=== PATIENT | male | born 1930 | race Caucasian/White ===

== ENCOUNTER 2017-03-18 13:24 | Inpatient (IN) ==
--- NOTE | 2017-03-18 14:23 | Emergency Department Note ---
SOB HPI - General Chief Complaint: Shortness of Breath/Dyspnea Stated Complaint: SOB, fever, flank pain, dark urine Time Seen by Provider: 03/18/17 13:39 Source: family Mode of arrival: wheelchair Limitations: no limitations - History of Present Illness 87-year-old male presents with family for increased shortness of breath, weakness, fevers on and off for the last 2 days and dark urine. He also has some flank pain that she has been complaining of and burning with urination. He was previously at [facility] and discharged on the sixth floor ischemic cardiomyopathy and unstable angina. His daughter has been getting him up using the walker and he has been very short of breath. He has a history of dilated cardiomyopathy and congestive heart failure. He has had a nonproductive cough. He complains of chest pain on and off but has not told his daughters about this. He has not been eating or drinking very well. 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 He has had a cholecystectomy and bowel removed due to perforation. He has not been vomiting. Temperature is 99.3 and he is satting around 92% on room air. He does use oxygen at night and family states he was on oxygen almost the whole time he was in the hospital. They were upset with [facility] and do not want to go back - Related Data Home Medications Medication Instructions Recorded Confirmed Acetaminophen [Acetaminophen Extra 500 mg PO QHS 03/18/17 03/18/17 Strength] Ascorbic Acid [Vitamin C] 500 mg PO DAILY 03/18/17 03/18/17 Aspirin [Leatha Chewable Aspirin] 81 mg PO DAILY 03/18/17 03/18/17 Carvedilol [Coreg] 25 mg PO BID 03/18/17 03/18/17 Cholecalciferol (Vitamin D3) 2,000 unit PO DAILY 03/18/17 03/18/17 [Vitamin D] Clopidogrel [Plavix] 75 mg PO DAILY 03/18/17 03/18/17 Docusate Sodium [Colace] 100 mg PO BID 03/18/17 03/18/17 Furosemide [Lasix] 40 mg PO DAILY 03/18/17 03/18/17 Ipratropium/Albuterol Sulfate 2 puff INH Q4HP PRN 03/18/17 03/18/17 [Combivent] LORazepam [Ativan] 0.5 mg PO PRN PRN 03/18/17 03/18/17 Levothyroxine Sodium [Levoxyl] 88 mcg PO DAILY 03/18/17 03/18/17 Lisinopril [Zestril] 5 mg PO DAILY 03/18/17 03/18/17 Multivitamin,Ther and Minerals 1 each PO DAILY 03/18/17 03/18/17 [Multivitamins with Minerals Hp] Nortriptyline HCl [Pamelor] 25 mg PO HS 03/18/17 03/18/17 Pantoprazole Sodium [Protonix] 40 mg PO DAILY 03/18/17 03/18/17 Potassium Chloride [Klor-Con 10 meq PO BID 03/18/17 03/18/17 Sprinkle] Sertraline [Zoloft] 25 mg PO DAILY 03/18/17 03/18/17 Simvastatin [Zocor] 10 mg PO HS 03/18/17 03/18/17 Ubidecarenone/Vit E Acetate [Co 3 each PO DAILY 03/18/17 03/18/17 Q-10 100 mg Softgel] Allergies Allergy/AdvReac Type Severity Reaction Status Date / Time cephalexin Allergy Unknown Unknown Verified 11/25/14 12:07 ezetimibe [From Zetia] Allergy Unknown Unknown Verified 11/25/14 12:07 ketorolac [From Toradol] Allergy Unknown Unknown Verified 11/25/14 12:07 meperidine Allergy Unknown Unknown Verified 11/25/14 12:07 morphine Allergy Unknown Unknown Verified 11/25/14 12:07 nitroglycerin Allergy Unknown Unknown Verified 11/25/14 12:07 Oxycodone Allergy Unknown Unknown Verified 11/25/14 12:07 Penicillins Allergy Unknown Unknown Verified 11/25/14 12:07 simvastatin Allergy Unknown Unknown Verified 11/25/14 12:07 erythromycin Allergy Unknown Unknown Uncoded 11/25/14 12:07 sulfa Allergy Unknown Unknown Uncoded 11/25/14 12:07 Review of Systems All systems ED: reviewed and negative except as stated. Past Medical History - Past Medical History Medical history: Reports: atrial fibrillation, CHF, COPD, coronary artery disease, CVA, hyperlipidemia, kidney stones, myocardial infarction, other ( Hydrocephalus, ischemic cardiomyopathy, neuropathy, left foot drop, back pain, subdural hemorrhage, hypothyroidism) Psychiatric history: Reports: depression Surgical history ED: Reports: cholecystectomy, colectomy Family history: Reports: non-contributory - Social History smoking status: Never smoker Physical Exam Limitations: no limitations General appearance: alert, in no apparent distress Head: atraumatic Eye: Present: normal appearance. Absent: conjunctival injection ENT: normal oropharynx, mucous membranes moist Neck: Present: normal inspection, full ROM. Absent: tenderness, lymphadenopathy Chest: Present: normal inspection, symmetric chest wall rise, tenderness ( anteriolateral left chest tenderness) Respiratory: Present: other (decreased in the lower lobes) Cardiovascular: Present: regular rate, normal heart sounds Abdominal: Present: soft, tenderness, normal bowel sounds. Absent: distention, guarding, rebound Abdominal tenderness: Present: RUQ, LUQ, LLQ, epigastrium, diffuse, moderate. Absent: RLQ Extremities: Present: normal inspection, full ROM. Absent: pedal edema Neurological: Present: alert, oriented X3, CN II-XII intact Psychiatric: Present: normal affect, normal mood Skin: Present: warm, dry, intact Course Vital Signs Temperature 99.3 F H 03/18/17 13:26 Respiratory Rate 20 03/18/17 13:26 Blood Pressure 106/63 03/18/17 13:26 Pulse Oximetry (%) 92 03/18/17 13:26 Temperature 100.7 F H 03/18/17 16:42 Pulse Rate 70 03/18/17 20:28 Respiratory Rate 22 03/18/17 20:28 Blood Pressure 96/54 03/18/17 20:00 Pulse Oximetry (%) 94 03/18/17 20:28 Shortness of Breath/Dyspnea - MDM Narrative Medical decision making narrative: BNP doubled since previous labs. White count continued to be high at 20. Lactic was normal CHF on chest x-ray. He also has low blood pressures and fever. He was given some fluids and blood pressure seemed to stay stable with a MAP in the 70s. I discussed with the patient if he wants life saving measures such as chest compressions if his heart stops. He said he does not want compressions and family agree that he does not need to have any interventions surgically - Lab Data Lab results reviewed: Yes I reviewed the patient's lab results. Result diagrams: 03/18/17 14:12 03/18/17 14:12 Lab Results 03/18/17 03/18/17 03/18/17 Range/Units 14:12 14:12 14:12 WBC 20.4 H (4.5-11.0) K/mcL RBC 6.24 H (4.50-5.90) M/mcL Hgb 15.7 (13.5-16.5) g/dL Hct 49.7 (41.0-55.0) % MCV 79.6 L (80.0-100.0) fL MCH 25.1 L (26.0-34.0) pg MCHC 31.5 (31.0-36.0) g/dL RDW 18.0 H (11.5-14.5) % Plt Count 290 (140-440) K/mcL MPV 11.3 H (7.4-10.4) fL Total Counted 100 Seg Neutrophils % 65 (38-78) % Band Neutrophils % Not Reportable Lymphocytes % 9 L (15-49) % Monocytes % (Manual) 21 H (1-12) % Eosinophils % (Manual) 4 (0-7) % Basophils % (Manual) 1 (0-2) % Platelet Estimate Normal (NORMAL) RBC Morphology Abnorm A (NORMAL) Hypochromasia Occ A (NONE SEEN) Anisocytosis 1+ A (NONE SEEN) Microcytosis 1+ A (NONE SEEN) VBG Lactic Acid 1.5 (0.5-2.2) mmol/L Sodium 137 (133-145) mmol/L Potassium 3.9 (3.3-5.1) mmol/L Chloride 100 (96-108) mmol/L Carbon Dioxide 21 L (22-30) mmol/L Anion Gap 16.0 (8-16) BUN 20 (8-23) mg/dl Creatinine 0.9 (0.7-1.2) mg/dl GFR Calculation 76 Glucose 113 H (70-105) mg/dL Calcium 8.8 (8.6-10.4) mg/dl Total Bilirubin 1.1 H (0.0-1.0) mg/dL AST 20 (0-37) U/l ALT 12 (0-40) U/l Alkaline Phosphatase 89 (39-117) U/L Troponin T (0-0.03) ng/ml NT-Pro-B Natriuret Pep (0-450) pg/ml Total Protein 6.2 (5.9-8.4) gm/dL Albumin 3.7 (3.2-5.2) gm/dL Globulin 2.5 (2.2-3.7) gm/dL Albumin/Globulin Ratio 1.5 (1.0-2.3) Procalcitonin (<0.10) ng/mL Urine Color Urine Appearance Urine pH (5.0-9.0) Ur Specific [place] (1.000-1.035) Urine Protein (NEG) mg/dL Urine Glucose (UA) (NEG) mg/dL Urine Ketones (NEG) mg/dL Urine Occult Blood (<0.03) mg/dL Urine Nitrate (NEG) Urine Bilirubin (NEG) mg/dL Urine Urobilinogen (NEG) mg/dL Ur Leukocyte Esterase (NEG) /uL Urine RBC (0-1) /hpf Urine WBC (0-4) /hpf Ur Squamous Epith Cells (0-4) /hpf Urine Bacteria (0) /hpf Hyaline Casts (0-2) /lpf Urine Mucus (0) /hpf Ur Culture Indicated? 03/18/17 03/18/17 03/18/17 Range/Units 14:12 14:12 14:12 WBC (4.5-11.0) K/mcL RBC (4.50-5.90) M/mcL Hgb (13.5-16.5) g/dL Hct (41.0-55.0) % MCV (80.0-100.0) fL MCH (26.0-34.0) pg MCHC (31.0-36.0) g/dL RDW (11.5-14.5) % Plt Count (140-440) K/mcL MPV (7.4-10.4) fL Total Counted Seg Neutrophils % (38-78) % Band Neutrophils % Lymphocytes % (15-49) % Monocytes % (Manual) (1-12) % Eosinophils % (Manual) (0-7) % Basophils % (Manual) (0-2) % Platelet Estimate (NORMAL) RBC Morphology (NORMAL) Hypochromasia (NONE SEEN) Anisocytosis (NONE SEEN) Microcytosis (NONE SEEN) VBG Lactic Acid (0.5-2.2) mmol/L Sodium (133-145) mmol/L Potassium (3.3-5.1) mmol/L Chloride (96-108) mmol/L Carbon Dioxide (22-30) mmol/L Anion Gap (8-16) BUN (8-23) mg/dl Creatinine (0.7-1.2) mg/dl GFR Calculation Glucose (70-105) mg/dL Calcium (8.6-10.4) mg/dl Total Bilirubin (0.0-1.0) mg/dL AST (0-37) U/l ALT (0-40) U/l Alkaline Phosphatase (39-117) U/L Troponin T 0.02 (0-0.03) ng/ml NT-Pro-B Natriuret Pep 6214.0 H (0-450) pg/ml Total Protein (5.9-8.4) gm/dL Albumin (3.2-5.2) gm/dL Globulin (2.2-3.7) gm/dL Albumin/Globulin Ratio (1.0-2.3) Procalcitonin < 0.05 (<0.10) ng/mL Urine Color Urine Appearance Urine pH (5.0-9.0) Ur Specific [place] (1.000-1.035) Urine Protein (NEG) mg/dL Urine Glucose (UA) (NEG) mg/dL Urine Ketones (NEG) mg/dL Urine Occult Blood (<0.03) mg/dL Urine Nitrate (NEG) Urine Bilirubin (NEG) mg/dL Urine Urobilinogen (NEG) mg/dL Ur Leukocyte Esterase (NEG) /uL Urine RBC (0-1) /hpf Urine WBC (0-4) /hpf Ur Squamous Epith Cells (0-4) /hpf Urine Bacteria (0) /hpf Hyaline Casts (0-2) /lpf Urine Mucus (0) /hpf Ur Culture Indicated? 03/18/17 Range/Units 15:52 WBC (4.5-11.0) K/mcL RBC (4.50-5.90) M/mcL Hgb (13.5-16.5) g/dL Hct (41.0-55.0) % MCV (80.0-100.0) fL MCH (26.0-34.0) pg MCHC (31.0-36.0) g/dL RDW (11.5-14.5) % Plt Count (140-440) K/mcL MPV (7.4-10.4) fL Total Counted Seg Neutrophils % (38-78) % Band Neutrophils % Lymphocytes % (15-49) % Monocytes % (Manual) (1-12) % Eosinophils % (Manual) (0-7) % Basophils % (Manual) (0-2) % Platelet Estimate (NORMAL) RBC Morphology (NORMAL) Hypochromasia (NONE SEEN) Anisocytosis (NONE SEEN) Microcytosis (NONE SEEN) VBG Lactic Acid (0.5-2.2) mmol/L Sodium (133-145) mmol/L Potassium (3.3-5.1) mmol/L Chloride (96-108) mmol/L Carbon Dioxide (22-30) mmol/L Anion Gap (8-16) BUN (8-23) mg/dl Creatinine (0.7-1.2) mg/dl GFR Calculation Glucose (70-105) mg/dL Calcium (8.6-10.4) mg/dl Total Bilirubin (0.0-1.0) mg/dL AST (0-37) U/l ALT (0-40) U/l Alkaline Phosphatase (39-117) U/L Troponin T (0-0.03) ng/ml NT-Pro-B Natriuret Pep (0-450) pg/ml Total Protein (5.9-8.4) gm/dL Albumin (3.2-5.2) gm/dL Globulin (2.2-3.7) gm/dL Albumin/Globulin Ratio (1.0-2.3) Procalcitonin (<0.10) ng/mL Urine Color Yellow Urine Appearance Clear Urine pH 5.0 (5.0-9.0) Ur Specific [place] 1.015 (1.000-1.035) Urine Protein Neg (NEG) mg/dL Urine Glucose (UA) Negative (NEG) mg/dL Urine Ketones Neg (NEG) mg/dL Urine Occult Blood 0.03 A (<0.03) mg/dL Urine Nitrate Neg (NEG) Urine Bilirubin Neg (NEG) mg/dL Urine Urobilinogen 4.0 A (NEG) mg/dL Ur Leukocyte Esterase Neg (NEG) /uL Urine RBC < 1 (0-1) /hpf Urine WBC < 1 (0-4) /hpf Ur Squamous Epith Cells 0 (0-4) /hpf Urine Bacteria 0 (0) /hpf Hyaline Casts 1 (0-2) /lpf Urine Mucus Few (0) /hpf Ur Culture Indicated? No - Radiology Data Radiology results reviewed: Yes I reviewed the patient's radiology results. Congestive heart failure with pulmonary edema. Superimposed pneumonia cannot be excluded. Disposition Pt seen by ELECT[employer] OPERATOR/PA only: No Clinical Impression: Congestive heart failure, Hospital acquired PNA Disposition: Xfer As Inpt ([facility]) Condition: Fair Referrals: Kiana Multani MD [Primary Care Provider] -
[2017-03-18] MEDS: 0.9 % SODIUM CHLORIDE 1,000 ML IV SCH (14:30)
[2017-03-18 15:00] LABS: Mean Cell Volume 79.6 fL (80.0-100.0); Mean Corpuscular HGB Conc 31.5 g/dL (31.0-36.0); Mean Corpuscular Hemoglobin 25.1 pg (26.0-34.0); Platelet Count 290 K/mcL (140-440); RBC 6.24 M/mcL (4.50-5.90)
[2017-03-18 15:14] LABS: ALT/SGPT 12 U/l (0-40); Albumin 3.7 gm/dL (3.2-5.2); Albumin/Globulin Ratio 1.5 (1.0-2.3); Alkaline Phosphatase 89 U/L (39-117); Blood Urea Nitrogen 20 mg/dl (8-23)
[2017-03-18 15:21] LABS: Anisocytosis 1+ (NONE SEEN); Basophils % (Manual) 1 % (0-2); Eosinophils % (Manual) 4 % (0-7); Hypochromasia OCC (NONE SEEN); Lymphocytes % 9 % (15-49); Monocytes % (Manual) 21 % (1-12); Platelet Estimate NORMAL (NORMAL); RBC Morphology ABNORM (NORMAL); Segmented Neutrophils % 65 % (38-78)
[2017-03-18] MEDS ORDERED: ACETAMINOPHEN 325 MG TABLET PO ONE (15:44)
[2017-03-18] MEDS ORDERED: LEVOFLOXACIN 500 MG/100 ML BAG IV ONE (15:47)
--- NOTE | 2017-03-18 16:45 | XRay Report ---
HISTORY: Reason for Exam:SOB heart failure FINDINGS: Heart is mildly enlarged. There are generalized alveolar opacities throughout both lungs. This is most apparent in a perihilar distribution. No consolidating infiltrate is present and there is no pleural effusion. Dual-chamber pacemaker is well-positioned. There is a shunt catheter extending across right chest from the neck to the abdomen. Comparison with the prior exam from 06/28/15 shows the previously seen bibasilar infiltrates are no longer present. IMPRESSION: Congestive heart failure with pulmonary edema. Superimposed pneumonia cannot be excluded. Interpreted and Authenticated by: Tayo Murry 03/18/17
[2017-03-18 16:52] LABS: Appearance,Urine CLEAR; Bacteria,Urine 0 /hpf (0); Bilirubin,Urine NEG (NEG); Color,Urine YELLOW; Glucose,Urine (UA) NEGATIVE (NEG); Leukocyte Esterase,Urine NEG /uL (NEG); Mucus,Urine FEW /hpf (0); Nitrate,Urine NEG (NEG); Protein,Urine NEG (NEG); Specific Gravity,Urine 1.015 (1.000-1.035); Urine Blood 0.03 mg/dL (<0.03); Urine Hyaline Cast 1 /lpf (0-2); Urine RBC < 1 /hpf (0-1); Urine Squamous Epithelial Cell 0 /hpf (0-4); Urine WBC < 1 /hpf (0-4)
[2017-03-18] MEDS ORDERED: ONDANSETRON 4 MG/2 ML VIAL IV ONE (16:59)
--- NOTE | 2017-03-18 17:04 | Emergency Department Note ---
ED Note Addendum Note Addendum: patient examined leisa Jacobs and lab and xray reviewed. pt want to be DNR.. has a fever.. suspect pneumonia, has chf. Dr Cisneros consulted and agree with admission. started on levaquin allergic to cephasporins
--- NOTE | 2017-03-18 17:52 | Internal Med History&Physical ---
Medical - H&P: HPI Patient information: Note initiated : 03/18/17 at 5:48 pm Service Date, if different from initiated Date: [] Patient: Matteo Devries 87 y/o M admitted on for SOB, fever, flank pain, dark urine. Chief Complaint: [] History of present illness: Mr. Devries is a 87 year old man who was admitted to [facility] earlier this week, and discharged on Monday. His daughter reports that he had positive troponins and congestive heart failure. He was diuresed. Since discharge she has continued to decline at home. He does live alone, but she says he was having difficulty getting out of bed, and having ongoing cough and chills. He has had worsening shortness of breath over the last couple of days. The patient reports he has more orthopnea than dyspnea with exertion. ER evaluation today showed markedly elevated white blood cell count, and chest x- ray consistent with both CHF and pneumonia. He also had a fever with a temperature of 100.4. Otherwise, he also says his vision has been a little blurry, he has an earache that comes and goes, he has had a mild sore throat. Has had some intermittent chest pain, which is mainly left-sided and sharp, but inconsistent. He denies having that pain today, but the ER note said that he had some discomfort on arrival that went away when they put on oxygen. He denies headaches or dizziness, palpitations, abdominal pain, nausea or vomiting or diarrhea or constipation. He does have some chronic urinary hesitancy issues. He was advised to transfer to another hospital that had cardiology available, but the patient and his daughter know that the real time analyst at [facility] that he is no longer a candidate for any procedures, and can only be medically managed. He and his family are quite adamant that he wants to be a DNR, and does not want to be transferred to a center that has more specialty care available. Patient reports he had a flu shot this season, and a Pneumovax last year. Medical history: Admit to [facility] March 12, 2017, with unstable angina. atrial fibrillation, paroxysmal Sick sinus syndrome, status post pacemaker placement CHF, combined systolic and diastolic. COPD, on chronic oxygen nightly coronary artery disease, status post past CVA, hyperlipidemia, kidney stones, myocardial infarction, Hydrocephalus, post shunt procedure. schemic cardiomyopathy, neuropathy, left foot drop, back pain, subdural hemorrhage, hypothyroidism) depression Peripheral vascular disease Diverticulosis GERD Hypothyroidism History of prostate cancer status post radical prostatectomy. Hypertension and carotid stenosis, status post left CEA Cholecystectomy and inguinal hernia repair Surgical history ED: Reports: cholecystectomy, colectomy, CABG Family history: Grandfather had melanoma. Sister had colon cancer. Another sister had coronary disease in her 40s and a brother had coronary disease in his 60s. Father with heart disease. Medical - H&P: Meds Home Medications Medication Instructions Recorded Confirmed Type Acetaminophen [Acetaminophen Extra 500 mg PO QHS 03/18/17 03/18/17 History Strength] Ascorbic Acid [Vitamin C] 500 mg PO DAILY 03/18/17 03/18/17 History Aspirin [Leatha Chewable Aspirin] 81 mg PO DAILY 03/18/17 03/18/17 History Carvedilol [Coreg] 25 mg PO BID 03/18/17 03/18/17 History Cholecalciferol (Vitamin D3) 2,000 unit PO DAILY 03/18/17 03/18/17 History [Vitamin D] Clopidogrel [Plavix] 75 mg PO DAILY 03/18/17 03/18/17 History Docusate Sodium [Colace] 100 mg PO BID 03/18/17 03/18/17 History Furosemide [Lasix] 40 mg PO DAILY 03/18/17 03/18/17 History Ipratropium/Albuterol Sulfate 2 puff INH Q4HP PRN 03/18/17 03/18/17 History [Combivent] LORazepam [Ativan] 0.5 mg PO PRN PRN 03/18/17 03/18/17 History Levothyroxine Sodium [Levoxyl] 88 mcg PO DAILY 03/18/17 03/18/17 History Lisinopril [Zestril] 5 mg PO DAILY 03/18/17 03/18/17 History Multivitamin,Ther and Minerals 1 each PO DAILY 03/18/17 03/18/17 History [Multivitamins with Minerals Hp] Nortriptyline HCl [Pamelor] 25 mg PO HS 03/18/17 03/18/17 History Pantoprazole Sodium [Protonix] 40 mg PO DAILY 03/18/17 03/18/17 History Potassium Chloride [Klor-Con 10 meq PO BID 03/18/17 03/18/17 History Sprinkle] Sertraline [Zoloft] 25 mg PO DAILY 03/18/17 03/18/17 History Simvastatin [Zocor] 10 mg PO HS 03/18/17 03/18/17 History Ubidecarenone/Vit E Acetate [Co 3 each PO DAILY 03/18/17 03/18/17 History Q-10 100 mg Softgel] Allergies Allergy/AdvReac Type Severity Reaction Status Date / Time cephalexin Allergy Unknown Unknown Verified 11/25/14 12:07 ezetimibe [From Zetia] Allergy Unknown Unknown Verified 11/25/14 12:07 ketorolac [From Toradol] Allergy Unknown Unknown Verified 11/25/14 12:07 meperidine Allergy Unknown Unknown Verified 11/25/14 12:07 morphine Allergy Unknown Unknown Verified 11/25/14 12:07 nitroglycerin Allergy Unknown Unknown Verified 11/25/14 12:07 Oxycodone Allergy Unknown Unknown Verified 11/25/14 12:07 Penicillins Allergy Unknown Unknown Verified 11/25/14 12:07 simvastatin Allergy Unknown Unknown Verified 11/25/14 12:07 erythromycin Allergy Unknown Unknown Uncoded 11/25/14 12:07 sulfa Allergy Unknown Unknown Uncoded 11/25/14 12:07 Medical - H&P: Exam - Constitutional Vitals: Temp Pulse Resp BP Pulse Ox 100.7 F H 70 31 H 95/61 93 03/18/17 16:42 03/18/17 16:38 03/18/17 16:38 03/18/17 16:30 03/18/17 16:38 T-max 100.7. Heart rate 69-73. Respiratory rate regions from 21-31. Blood pressure ranges from 95/65 to 106/63. O2 saturation was 92% on room air and 96 % on 2 L next On exam, he is an elderly white man who is not currently in any distress. He is nearly flat without obvious respiratory distress. Head: Normocephalic, atraumatic. Eyes: PERRLA, EOMI, anicteric. His: TMs and canals are clear. Pharynx: Is clear. Mucosa appears dry. Teeth are in good repair. Neck: Shows jugular venous pressure of about 5 cm, no bili, bruits, lymphadenopathy. Cardiac exam: Shows a slightly irregular rhythm, with normal S1 and S2. There is a 2/6 systolic murmur noted near the left lower sternal border. No rubs or gallops are noted. Lungs: He has diffuse very soft crackles heard throughout most of both lung carvalho. No significant wheezing or rhonchi are noted. Abdomen is soft and with normal bowel sounds. He notes his lower abdomen is a little tender to palpation. There is no guarding or rebound. No masses are noted. Extremities: Show no cyanosis, clubbing, edema. Toes are intact in his right foot. Pulses are decreased in the left foot. Slater neurologic exam: The patient appears alert and oriented, calm and cooperative. Exam is grossly nonfocal. Medical - H&P: Reslt - Labs CBC & Chem 7: 03/18/17 14:12 03/18/17 14:12 Labs: Short CBC 03/18/17 Range/Units 14:12 WBC 20.4 H (4.5-11.0) K/mcL Hgb 15.7 (13.5-16.5) g/dL Hct 49.7 (41.0-55.0) % Plt Count 290 (140-440) K/mcL BMP 03/18/17 14:12 Sodium 137 Potassium 3.9 Chloride 100 Carbon Dioxide 21 L BUN 20 Creatinine 0.9 Glucose 113 H Calcium 8.8 Cardiac Enzymes 03/18/17 Range/Units 14:12 Troponin T 0.02 (0-0.03) ng/ml Liver Function 03/18/17 Range/Units 14:12 Total Bilirubin 1.1 H (0.0-1.0) mg/dL AST 20 (0-37) U/l ALT 12 (0-40) U/l Alkaline Phosphatase 89 (39-117) U/L Albumin 3.7 (3.2-5.2) gm/dL Urine 03/18/17 Range/Units 15:52 Urine Color Yellow Urine Appearance Clear Urine pH 5.0 (5.0-9.0) Ur Specific [place] 1.015 (1.000-1.035) Urine Protein Neg (NEG) mg/dL Urine Glucose (UA) Negative (NEG) mg/dL March 18: CBC: White blood cell count 20,000, hemoglobin 15, hematocrit 49, platelets 290, 000, 65% neutrophils, 21% monocytes Lactic acid is normal at 1.5 Pro-calcitonin is normal at less than 0.05 Chemistry panel: Sodium 137, potassium 3.9, chloride 100, CO2 21, anion gap 16, BUN 20, creatinine 0.9, glucose 113 Total bilirubin 1.1, other LFTs normal. Troponin T is normal at 0.02 ProBNP is elevated at 6200 Urinalysis: Shows 0.03 occult blood, 4.0 urobilinogen, otherwise normal. Chest x-ray: FINDINGS: Heart is mildly enlarged. There are generalized alveolar opacities throughout both lungs. This is most apparent in a perihilar distribution. No consolidating infiltrate is present and there is no pleural effusion. Dual-chamber pacemaker is well-positioned. There is a shunt catheter extending across right chest from the neck to the abdomen. Comparison with the prior exam from 06/28/15 shows the previously seen bibasilar infiltrates are no longer present. IMPRESSION: Congestive heart failure with pulmonary edema. Superimposed pneumonia cannot be excluded. EKG shows left bundle branch block, probably paced. There may be underlying atrial fibrillation. Records from [facility]: March 12: Chest x-ray: Cardiomegaly. Sternotomy wires. Congestive heart failure with possible early infiltrate in the right lung base. Cardiogram: Showed severe left ventricular dilation severely reduced ejection fraction of 25%. Diffuse hypokinesis and akinesis due to previous large inferior lateral NM, and possibly anterior. Biatrial enlargement. Mild aortic regurgitation. Mild aortic stenosis. Pulmonary hypertension. Nuclear scan: Pharmacologic stress test: She had chest pain with injection. Dilated left ventricle with apical lateral perfusion abnormality no evidence of curt-infarction ischemia. Chest consistent with ischemic cardiomyopathy. Medical - H&P: A/P (1) CHF exacerbation Current visit: Yes Status: Acute (2) Ischemic cardiomyopathy Current visit: Yes Status: Acute (3) History of atrial fibrillation Current visit: Yes Status: Chronic (4) History of NM (myocardial infarction) Current visit: Yes Status: Chronic (5) Pneumonia Current visit: Yes Status: Acute (6) Hydrocephalus with operating shunt Current visit: Yes Status: Chronic (7) COPD (chronic obstructive pulmonary disease) Current visit: Yes Status: Chronic (8) Hypothyroidism Current visit: Yes Status: Chronic (9) Depression Current visit: Yes Status: Chronic - Narrative A/P Narrative: #1. Infectious disease. Patient presents with shortness of breath, marked leukocytosis, fever, and likely has pneumonia, although this is not definite on his chest x-ray. -Admit to ICU. -Check ABG. Use O2 to maintain saturations. -Patient has numerous reported antibiotic allergies. We have therefore started Levaquin and vancomycin. -Bronchodilators, incentive spirometry, pulmonary toilet. -Patient is DNR/DNI, but we may use BiPAP if needed. 2. Cardiac. Patient with complicated cardiac history with ischemic cardiomyopathy, NM, CHF, recent unstable angina. He is a very high risk for cardiac complications during his stay, and currently appears to have CHF associated with hypotension. It was explained to his family that we do not have a cardiology service here at the hospital, and that if he wants aggressive care he would need to be transferred to a different facility. The patient and the family reportedly do not want aggressive care, and only want him to get what can be managed here. His daughter indicates that he has been told by the real time analyst at [facility] that he is no longer a candidate for any interventional procedures, and needs to be medically managed. -Admit to ICU. -Dobutamine drip, to see if we can achieve diuresis. We can only use diuretics cautiously, due to his hypotension. He might do better on a Lasix drip. -He was given IV fluids in the emergency room, regarding hypotension in the setting of fever. -Sent to [facility] for recent cardiac records. -Continue aspirin, Coreg, Plavix, lisinopril, Lasix, Zocor, as tolerated. -Patient has reported allergies to morphine and Demerol and nitroglycerin and oxycodone. This will limit our ability to treat him if he has angina. Reported history of atrial fibrillation. He does not appear currently to be in A. fib, but does have a paced rhythm. 3. History of hydrocephalus, with a shunt in place. 4. Pulmonary. history of COPD. -Continue nighttime O2 and bronchodilators. 5. Hypothyroidism. Plan continue levothyroxine. 6. GI. Continue Protonix 7. Psychiatric. Reported history of depression. Continue Zoloft and as needed Ativan #8. CODE STATUS: DNR/DNI. 9. DVT prophylaxis: Continue Plavix and aspirin. Add SCDs. This visit has taken approximately 65 minutes, to review the case with the ER MD, review the patient's records from [facility], review current test results , interview and examine the patient, review plan of care with the patient and the family, and write orders.
[2017-03-18] MEDS ORDERED: PROMETHAZINE 25 MG/ML VIAL IV ONE (18:16)
[2017-03-18] MEDS ORDERED: VANCOMYCIN PER PHARMACY IV ONE (21:31)
[2017-03-18] MEDS ORDERED: MAGNESIUM HYDROXIDE 30 ML ORAL.SUSP PO PRN (21:31)
[2017-03-18] MEDS ORDERED: ONDANSETRON 4 MG/2 ML VIAL IV PRN (21:31)
[2017-03-18] MEDS ORDERED: ALBUTEROL SULFATE 2.5 MG/3 ML NEBULIZER NEB PRN (21:31)
[2017-03-18 22:40] LABS: Basophils # (Auto) 0.1 K/mcL (0.0-0.3); Basophils % (Auto) 0.3 % (0.0-2.0); Eosinophils # (Auto) 1.1 K/mcL (0.0-0.7); Eosinophils % (Auto) 6.2 % (0.0-7.0); Lymphocytes # (Auto) 1.1 K/mcL (1.5-4.8); Mean Corpuscular HGB Conc 32.6 g/dL (31.0-36.0); Mean Corpuscular Hemoglobin 25.4 pg (26.0-34.0); Monocytes # (Auto) 5.1 K/mcL (0.1-0.9); Monocytes % (Auto) 28.5 % (1.0-12.0); Platelet Count 289 K/mcL (140-440); Red Cell Distribution Width 16.8 % (11.5-14.5)
[2017-03-18] MEDS: IPRATROPIUM/ALBUTEROL 3 ML AMPUL.NEB NEB SCH ×2 (23:16→23:17)
[2017-03-18] MEDS: DOCUSATE SODIUM 100 MG CAPSULE PO SCH (23:23)
[2017-03-18] MEDS ORDERED: VANCOMYCIN 500 MG VIAL ONE (23:28)
[2017-03-18] MEDS: VANCOMYCIN 1,000 MG in 0.9 % SODIUM CHLORIDE 250 ML IV SCH ×2 (23:35→23:37)
[2017-03-18] MEDS: 0.9 % SODIUM CHLORIDE 10 ML SYRINGE IV SCH (23:36)
[2017-03-19] MEDS: ACETAMINOPHEN 325 MG TABLET PO PRN (02:16)
[2017-03-19] MEDS: 0.9 % SODIUM CHLORIDE 10 ML SYRINGE IV SCH ×3 (05:43→22:17)
[2017-03-19 06:11] LABS: Basophils # (Auto) 0.1 K/mcL (0.0-0.3); Basophils % (Auto) 0.2 % (0.0-2.0); Eosinophils # (Auto) 1.3 K/mcL (0.0-0.7); Eosinophils % (Auto) 5.7 % (0.0-7.0); Lymphocytes # (Auto) 0.9 K/mcL (1.5-4.8); Lymphocytes % (Auto) 3.8 % (15.5-49.0); Mean Corpuscular HGB Conc 32.1 g/dL (31.0-36.0); Mean Corpuscular Hemoglobin 25.4 pg (26.0-34.0); Monocytes # (Auto) 7.1 K/mcL (0.1-0.9); Monocytes % (Auto) 31.3 % (1.0-12.0); Platelet Count 283 K/mcL (140-440); RBC 5.88 M/mcL (4.50-5.90); Red Cell Distribution Width 17.9 % (11.5-14.5)
[2017-03-19 06:17] LABS: ALT/SGPT 11 U/l (0-40); Albumin 3.3 gm/dL (3.2-5.2); Albumin/Globulin Ratio 1.3 (1.0-2.3); Alkaline Phosphatase 91 U/L (39-117); Bilirubin,Direct 0.4 mg/dL (0.0-0.3); Blood Urea Nitrogen 18 mg/dl (8-23); Gamma Glutamyl Transpeptidase 42 U/L (8-61); Magnesium 1.8 mg/dL (1.6-2.5); Uric Acid 7.4 mg/dL (2.5-8.0)
[2017-03-19] MEDS ORDERED: VANCOMYCIN PER PHARMACY IV SCH (07:30)
[2017-03-19] MEDS: LEVOFLOXACIN 500 MG/100 ML BAG IV SCH (09:00)
[2017-03-19] MEDS: DOCUSATE SODIUM 100 MG CAPSULE PO SCH ×2 (09:01→21:53)
[2017-03-19] MEDS: IPRATROPIUM/ALBUTEROL 3 ML AMPUL.NEB NEB SCH ×3 (09:25→19:07)
[2017-03-19] MEDS: VANCOMYCIN 1,000 MG in 0.9 % SODIUM CHLORIDE 250 ML IV SCH (11:49)
--- NOTE | 2017-03-19 13:36 | XRay Report ---
HISTORY: Reason for Exam:f/u chf/pna, leukocytosis/fever FINDINGS: There are generalized alveolar opacities throughout both lungs. The lungs are normal and there is no lobar consolidation, mass or pleural effusion. The heart is mild to moderately enlarged. There is a dual-chamber pacemaker. There has been no significant change since 03/18/17. IMPRESSION: Stable cardiomegaly and widespread infiltrates in both lungs. The pattern is highly suggestive of congestive heart failure with pulmonary edema. Superimposed pneumonia or ARDS are also in the differential. Interpreted and Authenticated by: Tayo Murry 03/19/17
--- NOTE | 2017-03-19 13:39 | Internal Med Progress Note ---
Medical - PN: Subj Patient information: Note initiated : 03/19/17 at 1:39 pm Service Date, if different from initiated Date: [] Patient: Matteo Devries 87 y/o M admitted on 03/18/17 for SOB, fever, flank pain, dark urine. Chief Complaint: [] Interval history: March 18, 2017: History of present illness: Mr. Devries is a 87 year old man who was admitted to [facility] earlier this week, and discharged on Monday. His daughter reports that he had positive troponins and congestive heart failure. He was diuresed. Since discharge she has continued to decline at home. He does live alone, but she says he was having difficulty getting out of bed, and having ongoing cough and chills. He has had worsening shortness of breath over the last couple of days. The patient reports he has more orthopnea than dyspnea with exertion. ER evaluation today showed markedly elevated white blood cell count, and chest x- ray consistent with both CHF and pneumonia. He also had a fever with a temperature of 100.4. Otherwise, he also says his vision has been a little blurry, he has an earache that comes and goes, he has had a mild sore throat. Has had some intermittent chest pain, which is mainly left-sided and sharp, but inconsistent. He denies having that pain today, but the ER note said that he had some discomfort on arrival that went away when they put on oxygen. He denies headaches or dizziness, palpitations, abdominal pain, nausea or vomiting or diarrhea or constipation. He does have some chronic urinary hesitancy issues. He was advised to transfer to another hospital that had cardiology available, but the patient and his daughter know that the digital sales assistant at [facility] that he is no longer a candidate for any procedures, and can only be medically managed. He and his family are quite adamant that he wants to be a DNR, and does not want to be transferred to a center that has more specialty care available. Patient reports he had a flu shot this season, and a Pneumovax last year. March 19: Today, the patient says he feels a little better. He continues to be somewhat vague in his history. He denies fever chills, chest pain or significant shortness of breath, GI or symptoms. T-max was 99.9, but he has been afebrile since then. White blood cell count actually bumped up to 22,000 today. Chest x-ray continues to show widespread bilateral infiltrates. Patient continues to maintain O2 saturations on low flow oxygen. - Constitutional Vitals: Vital Signs Temp Pulse Resp BP Pulse Ox 99.4 F H 69 23 H 126/82 92 03/19/17 12:00 03/19/17 12:01 03/19/17 13:01 03/19/17 13:00 03/19/17 12:01 Period Temp Pulse Resp BP Sys/Lemon Pulse Ox Last 24 Hr 97.7 F-100.7 F 67-75 15-34 92-135/54-82 86-97 Intake and Output 03/18/17 03/19/17 03/19/17 21:59 05:59 13:59 Intake Total 1100 / 1100 600 / 600 100 / 100 Output Total 520 / 520 250 / 250 Balance 1100 / 1100 80 / 80 -150 / -150 Weight 157 lb Intake & Output: Intake & Output 03/18/17 03/19/17 03/19/17 21:59 05:59 13:59 Intake Total 1100 / 1100 600 / 600 100 / 100 Output Total 520 / 520 250 / 250 Balance 1100 / 1100 80 / 80 -150 / -150 Weight 157 lb Intake: IV 1100 / 1100 100 / 100 Sodium Chloride 0.9% 1,000 ml @ 1000 / 1000 250 mls/hr IV .Q4H [facility] Rx#: [id number] Oral 100 / 100 IV - Manual Only 500 / 500 Output: Void Amount 520 / 520 250 / 250 The patient is lying nearly flat, without significant distress. Neck shows no obvious JVD. Cardiac exam shows regular rate and rhythm. Lung exam shows crackles about residential up bilaterally. No wheezing is noted. Abdomen is soft and nontender. Extremities show no significant edema. Neurologic exam is grossly nonfocal. Medical - PN: Obj Da - Labs CBC & Chem 7: 03/19/17 03:46 03/19/17 03:46 Labs: Abnormal Lab Results 03/19/17 03/19/17 03/18/17 03:46 03:46 21:42 WBC 22.6 H 17.9 H RBC MCV 79.0 L 78.0 L MCH 25.4 L 25.4 L RDW 17.9 H 16.8 H MPV 11.5 H 11.2 H Lymph % (Auto) 3.8 L 6.0 L Fannin % (Auto) 31.3 H 28.5 H Gran # 13.3 H 10.5 H Lymph # (Auto) 0.9 L 1.1 L Fannin # (Auto) 7.1 H 5.1 H Eos # (Auto) 1.3 H 1.1 H Lymphocytes % Monocytes % (Manual) RBC Morphology Hypochromasia Anisocytosis Microcytosis Carbon Dioxide 21 L Glucose Calcium 8.5 L Total Bilirubin 1.3 H Direct Bilirubin 0.4 H Lactate Dehydrogenase 297 H NT-Pro-B Natriuret Pep Total Protein 5.8 L Urine Occult Blood Urine Urobilinogen 03/18/17 03/18/17 03/18/17 15:52 14:12 14:12 WBC RBC MCV MCH RDW MPV Lymph % (Auto) Fannin % (Auto) Gran # Lymph # (Auto) Fannin # (Auto) Eos # (Auto) Lymphocytes % Monocytes % (Manual) RBC Morphology Hypochromasia Anisocytosis Microcytosis Carbon Dioxide 21 L Glucose 113 H Calcium Total Bilirubin 1.1 H Direct Bilirubin Lactate Dehydrogenase NT-Pro-B Natriuret Pep 6214.0 H Total Protein Urine Occult Blood 0.03 A Urine Urobilinogen 4.0 A 03/18/17 14:12 WBC 20.4 H RBC 6.24 H MCV 79.6 L MCH 25.1 L RDW 18.0 H MPV 11.3 H Lymph % (Auto) Fannin % (Auto) Gran # Lymph # (Auto) Fannin # (Auto) Eos # (Auto) Lymphocytes % 9 L Monocytes % (Manual) 21 H RBC Morphology Abnorm A Hypochromasia Occ A Anisocytosis 1+ A Microcytosis 1+ A Carbon Dioxide Glucose Calcium Total Bilirubin Direct Bilirubin Lactate Dehydrogenase NT-Pro-B Natriuret Pep Total Protein Urine Occult Blood Urine Urobilinogen March 19: Nasal MRSA screen is negative. Blood cultures are negative so far. Sputum Gram stain: Shows only a few polys and squamous epithelial cells. Chest x-ray: Shows stable cardiomegaly and widespread infiltrates in all lung carvalho, suggestive of CHF with possible superimposed pneumonia. March 18: CBC: White blood cell count 20,000, hemoglobin 15, hematocrit 49, platelets 290, 000, 65% neutrophils, 21% monocytes ABG: On room air: Shows pH 7.43, CO2 35, O2 77, bicarb 23, O2 saturation 95%. Lactic acid is normal at 1.5 Pro-calcitonin is normal at less than 0.05 Chemistry panel: Sodium 137, potassium 3.9, chloride 100, CO2 21, anion gap 16, BUN 20, creatinine 0.9, glucose 113 Total bilirubin 1.1, other LFTs normal. Troponin T is normal at 0.02 ProBNP is elevated at 6200 Urinalysis: Shows 0.03 occult blood, 4.0 urobilinogen, otherwise normal. Chest x-ray: FINDINGS: Heart is mildly enlarged. There are generalized alveolar opacities throughout both lungs. This is most apparent in a perihilar distribution. No consolidating infiltrate is present and there is no pleural effusion. Dual-chamber pacemaker is well-positioned. There is a shunt catheter extending across right chest from the neck to the abdomen. Comparison with the prior exam from 06/28/15 shows the previously seen bibasilar infiltrates are no longer present. IMPRESSION: Congestive heart failure with pulmonary edema. Superimposed pneumonia cannot be excluded. EKG shows left bundle branch block, probably paced. There may be underlying atrial fibrillation. Records from [facility]: March 12: Chest x-ray: Cardiomegaly. Sternotomy wires. Congestive heart failure with possible early infiltrate in the right lung base. Cardiogram: Showed severe left ventricular dilation severely reduced ejection fraction of 25%. Diffuse hypokinesis and akinesis due to previous large inferior lateral ME, and possibly anterior. Biatrial enlargement. Mild aortic regurgitation. Mild aortic stenosis. Pulmonary hypertension. Nuclear scan: Pharmacologic stress test: She had chest pain with injection. Dilated left ventricle with apical lateral perfusion abnormality no evidence of curt-infarction ischemia. Chest consistent with ischemic cardiomyopathy. Meds: Medications Acetaminophen (Tylenol) 650 mg PO Q4-6HP PRN PRN Reason: PAIN/FEVER > 101 Last Admin: 03/19/17 02:16 Dose: 650 mg Albuterol Sulfate (Ventolin) 2.5 mg NEB Q4HRT PRN PRN Reason: Shortness Of Breath Or Wheezing Albuterol/Ipratropium (Duoneb) 3 ml NEB Q6HRT [facility] Last Admin: 03/19/17 09:25 Dose: 3 ml Docusate Sodium (Colace) 100 mg PO BID [facility] Last Admin: 03/19/17 09:01 Dose: 100 mg Dobutamine HCl/Dextrose (Dobutrex) 250 mg in 250 mls @ 2.177 mls/hr IV .Q24H GLORIA; 0.5 MCG/KG/MIN PRN Reason: Protocol Levofloxacin (Levaquin) 500 mg in 100 mls @ 100 mls/hr IV Q24H [facility] Last Infusion: 03/19/17 11:51 Dose: Infused Vancomycin HCl 1,000 mg/ (Sodium Chloride) 250 mls @ 250 mls/hr IV Q24H [facility] Last Admin: 03/19/17 11:49 Dose: 250 mls/hr Lorazepam (Ativan) 0.5 mg IV Q2HP PRN PRN Reason: ANXIETY/SEDATION Magnesium Hydroxide (Milk Of Magnesia) 30 ml PO DAILYP PRN PRN Reason: Constipation Ondansetron HCl (Zofran) 4 mg IV Q4-6HP PRN PRN Reason: Nausea And Vomiting Sodium Chloride (Saline Flush) 10 ml IV Q8 [facility] Last Admin: 03/19/17 05:43 Dose: 10 ml Vancomycin HCl (Vancomycin Per Pharmacy) 1 order IV [facility] [place] Medical - PN: A/P - Time Spent With Patient Total time spent is greater than 50% in coordination of care (as documented) at patient's floor/unit and/or counseling patient: (1) CHF exacerbation Status: Acute Current Visit: Yes (2) Ischemic cardiomyopathy Status: Acute Current Visit: Yes (3) History of atrial fibrillation Status: Chronic Current Visit: Yes (4) History of ME (myocardial infarction) Status: Chronic Current Visit: Yes (5) Pneumonia Status: Acute Current Visit: Yes (6) Hydrocephalus with operating shunt Status: Chronic Current Visit: Yes (7) COPD (chronic obstructive pulmonary disease) Status: Chronic Current Visit: Yes (8) Hypothyroidism Status: Chronic Current Visit: Yes (9) Depression Status: Chronic Current Visit: Yes - Narrative A/P Narrative: #1. Infectious disease. Patient presents with shortness of breath, marked leukocytosis, fever, and likely has pneumonia, although this is not definite on his chest x-ray. We have started Levaquin and vancomycin. -Bronchodilators, incentive spirometry, pulmonary toilet. -Patient is DNR/DNI, but we may use BiPAP if needed. 2. Cardiac. Patient with complicated cardiac history with ischemic cardiomyopathy, ME, CHF, recent unstable angina. He is a very high risk for cardiac complications during his stay, and currently appears to have CHF associated with hypotension. It was explained to his family that we do not have a cardiology service here at the hospital, and that if he wants aggressive care he would need to be transferred to a different facility. The patient and the family reportedly do not want aggressive care, and only want him to get what can be managed here. His daughter indicates that he has been told by the digital sales assistant at [facility] that he is no longer a candidate for any interventional procedures, and needs to be medically managed. -Chest x-ray continues to have the appearance of at least underlying CHF. The patient did not receive dobutamine overnight, because his blood pressures remained relatively high. At this time I will try him on a Lasix drip, to see if he can tolerate gentle diuresis. We can only use diuretics cautiously, due to his hypotension. -He was given IV fluids in the emergency room, regarding hypotension in the setting of fever. -Sent to [facility] for recent cardiac records. -Continue aspirin, Coreg, Plavix, lisinopril, Lasix, Zocor, as tolerated. -Patient has reported allergies to morphine and Demerol and nitroglycerin and oxycodone. This will limit our ability to treat him if he has angina. Reported history of atrial fibrillation. He does not appear currently to be in A. fib, but does have a paced rhythm. 3. History of hydrocephalus, with a shunt in place. 4. Pulmonary. history of COPD. -Continue nighttime O2 and bronchodilators. -His chest x-ray continues to look worse than he does clinically. Continue oxygen, nebulizer treatments. 5. Hypothyroidism. Plan continue levothyroxine. 6. GI. Continue Protonix 7. Psychiatric. Reported history of depression. Continue Zoloft and as needed Ativan #8. CODE STATUS: DNR/DNI. 9. DVT prophylaxis: Continue Plavix and aspirin. Add SCDs. Medical - PN: Qual - VTE Deep Vein Thrombosis/Pulmonary Embolism Present on Admission: Yes
[2017-03-19] MEDS: 0.9 % SODIUM CHLORIDE 1,000 ML IV SCH (20:15)
[2017-03-19] MEDS: LORazepam 2 MG/ML VIAL IV PRN (21:53)
[2017-03-20] MEDS ORDERED: FUROSEMIDE 100 MG/10 ML VIAL IV ONE (01:08)
[2017-03-20] MEDS: FUROSEMIDE 250 MG in 0.9 % SODIUM CHLORIDE 225 ML IV SCH (01:19)
[2017-03-20] MEDS: IPRATROPIUM/ALBUTEROL 3 ML AMPUL.NEB NEB SCH ×4 (01:35→19:07)
[2017-03-20] MEDS: 0.9 % SODIUM CHLORIDE 10 ML SYRINGE IV SCH ×3 (05:40→22:26)
[2017-03-20 07:44] LABS: ALT/SGPT 17 U/l (0-40); Albumin 3.4 gm/dL (3.2-5.2); Albumin/Globulin Ratio 1.2 (1.0-2.3); Alkaline Phosphatase 98 U/L (39-117); Bilirubin,Direct 0.5 mg/dL (0.0-0.3); Blood Urea Nitrogen 16 mg/dl (8-23); Gamma Glutamyl Transpeptidase 48 U/L (8-61); Magnesium 1.8 mg/dL (1.6-2.5); Uric Acid 6.5 mg/dL (2.5-8.0)
[2017-03-20 07:47] LABS: Basophils # (Auto) 0 K/mcL (0.0-0.3); Basophils % (Auto) 0 % (0.0-2.0); Eosinophils # (Auto) 0.6 K/mcL (0.0-0.7); Eosinophils % (Auto) 2.5 % (0.0-7.0); Granulocytes % (Auto) 64.1 % (38.0-78.0); Lymphocytes % (Auto) 4.1 % (15.5-49.0); Mean Cell Volume 78.4 fL (80.0-100.0); Mean Corpuscular HGB Conc 32.1 g/dL (31.0-36.0); Mean Corpuscular Hemoglobin 25.2 pg (26.0-34.0); Monocytes # (Auto) 7.1 K/mcL (0.1-0.9); Monocytes % (Auto) 29.3 % (1.0-12.0); Platelet Count 257 K/mcL (140-440); RBC 5.97 M/mcL (4.50-5.90)
[2017-03-20] MEDS: CLINDAMYCIN 600 MG in 0.9 % SODIUM CHLORIDE 50 ML IV SCH ×3 (09:48→22:24)
[2017-03-20] MEDS: DOCUSATE SODIUM 100 MG CAPSULE PO SCH ×3 (10:15→21:24)
[2017-03-20] MEDS: LEVOFLOXACIN 500 MG/100 ML BAG IV SCH (10:15)
--- NOTE | 2017-03-20 11:51 | Internal Med Progress Note ---
Medical - PN: Subj Patient information: Note initiated : 03/20/17 at 11:51 am Service Date, if different from initiated Date: [] Patient: Matteo Devries 87 y/o M admitted on 03/18/17 for SOB, Fever, Flank Pain, Dark Urine/CHF, Pneumonia. Chief Complaint: [] Interval history: March 18, 2017: History of present illness: Mr. Devries is a 87 year old man who was admitted to [facility] earlier this week, and discharged on Monday. His daughter reports that he had positive troponins and congestive heart failure. He was diuresed. Since discharge she has continued to decline at home. He does live alone, but she says he was having difficulty getting out of bed, and having ongoing cough and chills. He has had worsening shortness of breath over the last couple of days. The patient reports he has more orthopnea than dyspnea with exertion. ER evaluation today showed markedly elevated white blood cell count, and chest x- ray consistent with both CHF and pneumonia. He also had a fever with a temperature of 100.4. Otherwise, he also says his vision has been a little blurry, he has an earache that comes and goes, he has had a mild sore throat. Has had some intermittent chest pain, which is mainly left-sided and sharp, but inconsistent. He denies having that pain today, but the ER note said that he had some discomfort on arrival that went away when they put on oxygen. He denies headaches or dizziness, palpitations, abdominal pain, nausea or vomiting or diarrhea or constipation. He does have some chronic urinary hesitancy issues. He was advised to transfer to another hospital that had cardiology available, but the patient and his daughter know that the mid teacher at [facility] that he is no longer a candidate for any procedures, and can only be medically managed. He and his family are quite adamant that he wants to be a DNR, and does not want to be transferred to a center that has more specialty care available. Patient reports he had a flu shot this season, and a Pneumovax last year. March 19: Today, the patient says he feels a little better. He continues to be somewhat vague in his history. He denies fever chills, chest pain or significant shortness of breath, GI or symptoms. T-max was 99.9, but he has been afebrile since then. White blood cell count actually bumped up to 22,000 today. Chest x-ray continues to show widespread bilateral infiltrates. Patient continues to maintain O2 saturations on low flow oxygen. March 20: Last night, we started the patient on a Lasix drip to see if we could gently diurese him. He apparently had a very brisk response to this. Nurses note he really has not dropped to systolic blood pressure much below 100 with this. He is still negative only about 400 mL since admission. He says he does not feel quite as well today, although he did sit up in a chair today. He has trouble being very specific about his symptoms. He does not believe he is having fever or chills or chest pain. He thinks he might be a little short of breath, but denies significant cough. He denies significant GI or symptoms. He remains afebrile, and heart rate is controlled. Respiratory rate is quite variable. O2 saturation on 3 L is well above 90%. White blood cell count, however, is higher today. He is on Levaquin for gram-negative coverage, vancomycin for gram-positive coverage, and clindamycin was added for anaerobic coverage. Outside of these antibiotics, he is allergic to numerous antibiotics that we would normally use. - Constitutional Vitals: Vital Signs Temp Pulse Resp BP Pulse Ox 98.5 F 70 27 H 130/76 92 03/20/17 08:00 03/20/17 11:01 03/20/17 11:01 03/20/17 11:00 03/20/17 11:01 Period Temp Pulse Resp BP Sys/Lemon Pulse Ox Last 24 Hr 98.5 F-99.9 F 48-74 15-38 97-150/60-95 89-96 Intake and Output 03/19/17 03/20/17 03/20/17 21:59 05:59 13:59 Intake Total 346 / 346 394 / 394 Output Total 525 / 525 1475 / 1475 360 / 360 Balance -525 / -525 -1129 / -1129 34 / 34 Weight 160 lb 5 oz The patient is sitting up in a chair without significant distress. Appears fatigued. Neck shows no obvious JVD. Cardiac exam shows regular rate and rhythm. Lung exam shows very fine crackles about a third of the way up bilaterally. No wheezing is noted. Abdomen is soft and nontender. Extremities show no significant edema. Neurologic exam is grossly nonfocal. Intake & Output: Intake & Output 03/19/17 03/20/17 03/20/17 21:59 05:59 13:59 Intake Total 346 / 346 394 / 394 Output Total 525 / 525 1475 / 1475 360 / 360 Balance -525 / -525 -1129 / -1129 34 / 34 Weight 160 lb 5 oz Intake: IV 46 / 46 154 / 154 Cleocin 600 mg In Sodium 54 / 54 Chloride 0.9% 50 ml @ 100 mls/ hr IV Q8H GLORIA Rx#:[id number] Lasix 250 mg In Sodium Chloride 46 / 46 0.9% 225 ml @ 0.5 MG/KG/HR 36. 35 mls/hr IV Q24H GLORIA Rx#: [id number] Oral 300 / 300 240 / 240 Output: Urine Catheter Amount 1375 / 1375 360 / 360 Void Amount 525 / 525 100 / 100 Other: Meal Breakfast Percent of Meal Consumed 50% Feeding Ability Assist with Tray Set Up # Voids 1 # Bowel Movements 1 Medical - PN: Obj Da - Labs CBC & Chem 7: 03/20/17 03:42 03/20/17 06:33 Labs: Abnormal Lab Results 03/20/17 03/20/17 03/19/17 06:33 03:42 03:46 WBC 24.1 H 22.6 H RBC 5.97 H MCV 78.4 L 79.0 L MCH 25.2 L 25.4 L RDW 18.0 H 17.9 H MPV 11.6 H 11.5 H Lymph % (Auto) 4.[address] [place] % (Auto) 29.3 H 31.3 H Gran # 15.5 H 13.3 H Lymph # (Auto) 1.[address] [place] # (Auto) 7.1 H 7.1 H Eos # (Auto) 1.3 H Lymphocytes % Monocytes % (Manual) RBC Morphology Hypochromasia Anisocytosis Microcytosis Carbon Dioxide Glucose 116 H Calcium Phosphorus 2.2 L Total Bilirubin 1.7 H Direct Bilirubin 0.5 H Lactate Dehydrogenase 294 H NT-Pro-B Natriuret Pep Total Protein Urine Occult Blood Urine Urobilinogen 03/19/17 03/18/1717 03:46 21:42 15:52 WBC 17.9 H RBC MCV 78.0 L MCH 25.4 L RDW 16.8 H MPV 11.2 H Lymph % (Auto) 6.[address] [place] % (Auto) 28.5 H Gran # 10.5 H Lymph # (Auto) 1.[address] # (Auto) 5.1 H Eos # (Auto) 1.1 H Lymphocytes % Monocytes % (Manual) RBC Morphology Hypochromasia Anisocytosis Microcytosis Carbon Dioxide 21 L Glucose Calcium 8.5 L Phosphorus Total Bilirubin 1.3 H Direct Bilirubin 0.4 H Lactate Dehydrogenase 297 H NT-Pro-B Natriuret Pep Total Protein 5.8 L Urine Occult Blood 0.03 A Urine Urobilinogen 4.0 A 03/18/17 03/18/17 03/18/17 14:12 14:12 14:12 WBC 20.4 H RBC 6.24 H MCV 79.6 L MCH 25.1 L RDW 18.0 H MPV 11.3 H Lymph % (Auto) [place] % (Auto) Gran # Lymph # (Auto) [place] # (Auto) Eos # (Auto) Lymphocytes % 9 L Monocytes % (Manual) 21 H RBC Morphology Abnorm A Hypochromasia Occ A Anisocytosis 1+ A Microcytosis 1+ A Carbon Dioxide 21 L Glucose 113 H Calcium Phosphorus Total Bilirubin 1.1 H Direct Bilirubin Lactate Dehydrogenase NT-Pro-B Natriuret Pep 6214.0 H Total Protein Urine Occult Blood Urine Urobilinogen March 20: Chest x-ray: Shows moderately distended pulmonary arteries and edema throughout both lung carvalho, worse. There is a potential superimposed infiltrate in the right upper lobe. (Severe CHF) March 19: Nasal MRSA screen is negative. Blood cultures are negative so far. Sputum Gram stain: Shows only a few polys and squamous epithelial cells. Chest x-ray: Shows stable cardiomegaly and widespread infiltrates in all lung carvalho, suggestive of CHF with possible superimposed pneumonia. March 18: CBC: White blood cell count 20,000, hemoglobin 15, hematocrit 49, platelets 290, 000, 65% neutrophils, 21% monocytes ABG: On room air: Shows pH 7.43, CO2 35, O2 77, bicarb 23, O2 saturation 95%. Lactic acid is normal at 1.5 Pro-calcitonin is normal at less than 0.05 Chemistry panel: Sodium 137, potassium 3.9, chloride 100, CO2 21, anion gap 16, BUN 20, creatinine 0.9, glucose 113 Total bilirubin 1.1, other LFTs normal. Troponin T is normal at 0.02 ProBNP is elevated at 6200 Urinalysis: Shows 0.03 occult blood, 4.0 urobilinogen, otherwise normal. Chest x-ray: FINDINGS: Heart is mildly enlarged. There are generalized alveolar opacities throughout both lungs. This is most apparent in a perihilar distribution. No consolidating infiltrate is present and there is no pleural effusion. Dual-chamber pacemaker is well-positioned. There is a shunt catheter extending across right chest from the neck to the abdomen. Comparison with the prior exam from 06/28/15 shows the previously seen bibasilar infiltrates are no longer present. IMPRESSION: Congestive heart failure with pulmonary edema. Superimposed pneumonia cannot be excluded. EKG shows left bundle branch block, probably paced. There may be underlying atrial fibrillation. Records from [facility]: March 12: Chest x-ray: Cardiomegaly. Sternotomy wires. Congestive heart failure with possible early infiltrate in the right lung base. Cardiogram: Showed severe left ventricular dilation severely reduced ejection fraction of 25%. Diffuse hypokinesis and akinesis due to previous large inferior lateral AL, and possibly anterior. Biatrial enlargement. Mild aortic regurgitation. Mild aortic stenosis. Pulmonary hypertension. Nuclear scan: Pharmacologic stress test: She had chest pain with injection. Dilated left ventricle with apical lateral perfusion abnormality no evidence of curt-infarction ischemia. Chest consistent with ischemic cardiomyopathy. Meds: Medications Acetaminophen (Tylenol) 650 mg PO Q4-6HP PRN PRN Reason: PAIN/FEVER > 101 Last Admin: 03/19/17 02:16 Dose: 650 mg Albuterol Sulfate (Ventolin) 2.5 mg NEB Q4HRT PRN PRN Reason: Shortness Of Breath Or Wheezing Albuterol/Ipratropium (Duoneb) 3 ml NEB Q6HRT [facility] Last Admin: 03/20/17 07:41 Dose: 3 ml Docusate Sodium (Colace) 100 mg PO BID [facility] Last Admin: 03/20/17 10:15 Dose: 100 mg Dobutamine HCl/Dextrose (Dobutrex) 250 mg in 250 mls @ 2.177 mls/hr IV .Q24H [facility]IA; 0.5 MCG/KG/MIN PRN Reason: Protocol Last Admin: 03/19/17 21:53 Dose: Not Given Levofloxacin (Levaquin) 500 mg in 100 mls @ 100 mls/hr IV Q24H [facility] Last Infusion: 03/20/17 11:15 Dose: Infused Vancomycin HCl 1,000 mg/ (Sodium Chloride) 250 mls @ 250 mls/hr IV Q24H [facility] Last Infusion: 03/19/17 13:41 Dose: Infused Furosemide 250 mg/ Sodium (Chloride) 250 mls @ 36.35 mls/hr IV Q24H GLORIA; 0.5 MG /KG/HR PRN Reason: Protocol Last Titration: 03/20/17 04:26 Dose: 0 mg/kg/hr, 0 mls/hr Clindamycin Phosphate 600 mg/ (Sodium Chloride) 54 mls @ 100 mls/hr IV Q8H [facility] Last Infusion: 03/20/17 10:31 Dose: Infused Lorazepam (Ativan) 0.5 mg IV Q2HP PRN PRN Reason: ANXIETY/SEDATION Last Admin: 03/19/17 21:53 Dose: 0.5 mg Magnesium Hydroxide (Milk Of Magnesia) 30 ml PO DAILYP PRN PRN Reason: Constipation Ondansetron HCl (Zofran) 4 mg IV Q4-6HP PRN PRN Reason: Nausea And Vomiting Last Admin: 03/19/17 18:49 Dose: 4 mg Sodium Chloride (Saline Flush) 10 ml IV Q8 [facility] Last Admin: 03/20/17 05:40 Dose: 10 ml Vancomycin HCl (Vancomycin Per Pharmacy) 1 order IV [facility] [place] Medical - PN: A/P - Time Spent With Patient Total time spent is greater than 50% in coordination of care (as documented) at patient's floor/unit and/or counseling patient: 25 - 35 minutes (1) CHF exacerbation Status: Acute Current Visit: Yes (2) Ischemic cardiomyopathy Status: Acute Current Visit: Yes (3) History of atrial fibrillation Status: Chronic Current Visit: Yes (4) History of AL (myocardial infarction) Status: Chronic Current Visit: Yes (5) Pneumonia Status: Acute Current Visit: Yes (6) Hydrocephalus with operating shunt Status: Chronic Current Visit: Yes (7) COPD (chronic obstructive pulmonary disease) Status: Chronic Current Visit: Yes (8) Hypothyroidism Status: Chronic Current Visit: Yes (9) Depression Status: Chronic Current Visit: Yes - Narrative A/P Narrative: #1. Infectious disease. Patient presents with shortness of breath, marked leukocytosis, fever, and likely has pneumonia, although this is not definite on his chest x-ray. Because of his numerous allergies, we started Levaquin and vancomycin. Clindamycin was added for better anaerobe coverage. Clinically, the patient appears fairly stable, but white blood cell count continues to climb. Chest x-ray has an unusual appearance. If things are not improving by tomorrow, I think a pulmonary consult would be in order. -Bronchodilators, incentive spirometry, pulmonary toilet. -Patient is DNR/DNI, but we may use BiPAP if needed. 2. Cardiac. Patient with complicated cardiac history with ischemic cardiomyopathy, AL, CHF, recent unstable angina. He is a very high risk for cardiac complications during his stay, and currently appears to have CHF associated with hypotension. It was explained to his family that we do not have a cardiology service here at the hospital, and that if he wants aggressive care he would need to be transferred to a different facility. The patient and the family reportedly do not want aggressive care, and only want him to get what can be managed here. His daughter indicates that he has been told by the mid teacher at [facility] that he is no longer a candidate for any interventional procedures, and needs to be medically managed. -Chest x-ray continues to have the appearance of at least underlying CHF. The patient did not receive dobutamine overnight, because his blood pressures remained relatively high. He was placed on a Lasix drip last night, and diuresed quite a bit, although his overall diuresis since admission is still less than 500 mL. I think we should continue to try to gently diurese him, perhaps with a goal of 200 mL net every 8 hours, to see if this improves his respiratory status and chest x-ray findings. We can only use diuretics cautiously, due to his hypotension. -He was given IV fluids in the emergency room, regarding hypotension in the setting of fever. -Sent to [facility] for recent cardiac records. -Continue aspirin, Coreg, Plavix, lisinopril, Lasix, Zocor, as tolerated. -Patient has reported allergies to morphine and Demerol and nitroglycerin and oxycodone. This will limit our ability to treat him if he has angina. Reported history of atrial fibrillation. He does not appear currently to be in A. fib, but does have a paced rhythm. 3. History of hydrocephalus, with a shunt in place. 4. Pulmonary. history of COPD. -Continue nighttime O2 and bronchodilators. -His chest x-ray continues to look worse than he does clinically. Continue oxygen, nebulizer treatments. 5. Hypothyroidism. Plan continue levothyroxine. 6. GI. Continue Protonix 7. Psychiatric. Reported history of depression. Continue Zoloft and as needed Ativan #8. CODE STATUS: DNR/DNI. 9. DVT prophylaxis: Continue Plavix and aspirin. Add SCDs. Medical - PN: Qual - VTE Deep Vein Thrombosis/Pulmonary Embolism Present on Admission: Yes
[2017-03-20] MEDS: VANCOMYCIN 1,000 MG in 0.9 % SODIUM CHLORIDE 250 ML IV SCH ×2 (13:00→20:48)
--- NOTE | 2017-03-20 15:03 | XRay Report ---
CLINICAL INFORMATION: CHF and elevated white blood cell count COMPARISON: 03/19/2017 FINDINGS: Marked cardiomegaly and increased slightly. Pacemaker leads in stable, satisfactory position. Ectatic thoracic aorta again noted - remaining mediastinum is unremarkable. Pulmonary arteries are moderately distended and edema throughout both lungs is worsened. There is a potential superimposed infiltrate in the right upper lobe. IMPRESSION: Severe CHF - worsening. [] Potential superimposed right upper lobe pneumonia Interpreted and Authenticated by: Duglas Ferguson 03/20/17
[2017-03-20] MEDS: CARVEDILOL 12.5 MG TABLET PO SCH (17:23)
[2017-03-20] MEDS: ACETAMINOPHEN 325 MG TABLET PO PRN (19:21)
[2017-03-20] MEDS: LORazepam 0.5 MG TABLET PO PRN (19:22)
[2017-03-20] MEDS: NORTRIPTYLINE 25 MG CAPSULE PO SCH (20:48)
[2017-03-20] MEDS: SIMVASTATIN 10 MG TABLET PO SCH (20:48)
[2017-03-20] MEDS ORDERED: ACETAMINOPHEN 500 MG TABLET PO SCH (21:00)
[2017-03-20] MEDS: 0.9 % SODIUM CHLORIDE 250 ML IV SCH (22:59)
[2017-03-21] MEDS: FUROSEMIDE 250 MG in 0.9 % SODIUM CHLORIDE 225 ML IV SCH ×2 (00:37→09:44)
[2017-03-21] MEDS: IPRATROPIUM/ALBUTEROL 3 ML AMPUL.NEB NEB SCH ×4 (01:16→19:49)
[2017-03-21] MEDS: CLINDAMYCIN 600 MG in 0.9 % SODIUM CHLORIDE 50 ML IV SCH ×2 (05:41→14:03)
[2017-03-21] MEDS: 0.9 % SODIUM CHLORIDE 10 ML SYRINGE IV SCH ×3 (05:49→21:03)
[2017-03-21 06:08] LABS: Basophils # (Auto) 0 K/mcL (0.0-0.3); Basophils % (Auto) 0.1 % (0.0-2.0); Eosinophils # (Auto) 1.4 K/mcL (0.0-0.7); Granulocytes % (Auto) 66.3 % (38.0-78.0); Lymphocytes % (Auto) 4.1 % (15.5-49.0); Mean Cell Volume 79.6 fL (80.0-100.0); Mean Corpuscular HGB Conc 31.7 g/dL (31.0-36.0); Mean Corpuscular Hemoglobin 25.2 pg (26.0-34.0); Monocytes # (Auto) 5.6 K/mcL (0.1-0.9); Monocytes % (Auto) 23.5 % (1.0-12.0); Platelet Count 282 K/mcL (140-440); RBC 5.89 M/mcL (4.50-5.90); Red Cell Distribution Width 17.8 % (11.5-14.5)
[2017-03-21 06:32] LABS: ALT/SGPT 26 U/l (0-40); Albumin 3.2 gm/dL (3.2-5.2); Albumin/Globulin Ratio 1.2 (1.0-2.3); Alkaline Phosphatase 95 U/L (39-117); Bilirubin,Direct 0.4 mg/dL (0.0-0.3); Blood Urea Nitrogen 20 mg/dl (8-23); Gamma Glutamyl Transpeptidase 46 U/L (8-61); Magnesium 1.8 mg/dL (1.6-2.5); Uric Acid 7.1 mg/dL (2.5-8.0)
[2017-03-21] MEDS: LEVOTHYROXINE 88 MCG TABLET PO SCH (08:01)
[2017-03-21] MEDS: PANTOPRAZOLE 40 MG TABLET PO SCH (08:01)
[2017-03-21] MEDS: CARVEDILOL 12.5 MG TABLET PO SCH ×2 (08:02→17:26)
[2017-03-21] MEDS: POTASSIUM CHLORIDE 10 MEQ TABLET PO SCH ×2 (08:02→16:55)
[2017-03-21] MEDS ORDERED: LISINOPRIL 10 MG TABLET PO SCH (09:00)
[2017-03-21] MEDS: CLOPIDOGREL 75 MG TABLET PO SCH (09:30)
[2017-03-21] MEDS: ASPIRIN 81 MG TAB.CHEW PO SCH (09:30)
[2017-03-21] MEDS: MULTIVIT,THER IRON,CA,FA & MIN 1 TABLET PO SCH (09:30)
[2017-03-21] MEDS: SERTRALINE 50 MG TABLET PO SCH (09:30)
[2017-03-21] MEDS: ACETAMINOPHEN 325 MG TABLET PO PRN ×3 (09:31→22:09)
[2017-03-21] MEDS: VIT E ACETATE PO SCH (09:31)
[2017-03-21] MEDS: ASCORBIC ACID 500 MG TABLET PO SCH (09:31)
[2017-03-21] MEDS: DOCUSATE SODIUM 100 MG CAPSULE PO SCH ×3 (09:31→20:53)
[2017-03-21] MEDS: UBIDECARENONE PO SCH (09:31)
[2017-03-21] MEDS: VITAMIN D3 1,000 UNIT TABLET PO SCH (09:33)
[2017-03-21] MEDS: VANCOMYCIN 1,000 MG in 0.9 % SODIUM CHLORIDE 250 ML IV SCH ×2 (09:43→20:54)
[2017-03-21] MEDS: LEVOFLOXACIN 500 MG/100 ML BAG IV SCH (09:47)
[2017-03-21] MEDS: AZTREONAM 2 GM VIAL IV SCH ×2 (10:24→16:54)
[2017-03-21] MEDS: 0.9 % SODIUM CHLORIDE 250 ML IV SCH (11:21)
[2017-03-21] MEDS ORDERED: 0.9 % SODIUM CHLORIDE 250 ML IV SCH (11:30)
[2017-03-21] MEDS ORDERED: 0.9 % SODIUM CHLORIDE 1,000 ML BAG IV SCH (11:30)
[2017-03-21] MEDS: 0.9 % SODIUM CHLORIDE 1,000 ML IV SCH (11:35)
--- NOTE | 2017-03-21 16:02 | Internal Med Progress Note ---
Medical - PN: Subj Patient information: Note initiated : 03/21/17 at 4:00 pm Service Date, if different from initiated Date: [] Patient: Matteo Devries 87 y/o M admitted on 03/18/17 for SOB, Fever, Flank Pain, Dark Urine/CHF, Pneumonia. Chief Complaint: [] Interval history: March 18, 2017: History of present illness: Mr. Devries is a 87 year old man who was admitted to [facility] earlier this week, and discharged on Monday. His daughter reports that he had positive troponins and congestive heart failure. He was diuresed. Since discharge she has continued to decline at home. He does live alone, but she says he was having difficulty getting out of bed, and having ongoing cough and chills. He has had worsening shortness of breath over the last couple of days. The patient reports he has more orthopnea than dyspnea with exertion. ER evaluation today showed markedly elevated white blood cell count, and chest x- ray consistent with both CHF and pneumonia. He also had a fever with a temperature of 100.4. Otherwise, he also says his vision has been a little blurry, he has an earache that comes and goes, he has had a mild sore throat. Has had some intermittent chest pain, which is mainly left-sided and sharp, but inconsistent. He denies having that pain today, but the ER note said that he had some discomfort on arrival that went away when they put on oxygen. He denies headaches or dizziness, palpitations, abdominal pain, nausea or vomiting or diarrhea or constipation. He does have some chronic urinary hesitancy issues. He was advised to transfer to another hospital that had cardiology available, but the patient and his daughter know that the material assembler at [facility] that he is no longer a candidate for any procedures, and can only be medically managed. He and his family are quite adamant that he wants to be a DNR, and does not want to be transferred to a center that has more specialty care available. Patient reports he had a flu shot this season, and a Pneumovax last year. March 19: Today, the patient says he feels a little better. He continues to be somewhat vague in his history. He denies fever chills, chest pain or significant shortness of breath, GI or symptoms. T-max was 99.9, but he has been afebrile since then. White blood cell count actually bumped up to 22,000 today. Chest x-ray continues to show widespread bilateral infiltrates. Patient continues to maintain O2 saturations on low flow oxygen. March 20: Last night, we started the patient on a Lasix drip to see if we could gently diurese him. He apparently had a very brisk response to this. Nurses note he really has not dropped to systolic blood pressure much below 100 with this. He is still negative only about 400 mL since admission. He says he does not feel quite as well today, although he did sit up in a chair today. He has trouble being very specific about his symptoms. He does not believe he is having fever or chills or chest pain. He thinks he might be a little short of breath, but denies significant cough. He denies significant GI or symptoms. He remains afebrile, and heart rate is controlled. Respiratory rate is quite variable. O2 saturation on 3 L is well above 90%. White blood cell count, however, is higher today. He is on Levaquin for gram-negative coverage, vancomycin for gram-positive coverage, and clindamycin was added for anaerobic coverage. Outside of these antibiotics, he is allergic to numerous antibiotics that we would normally use. Mar 21 patient seen examined, no acute overnight issues, pt was sitting by the bed side , in chair, eating breakfast, still has some shortness of breath but today feels better than yesterday patient wbc count is still high, will change levoflox to aztreonam, change clinda to flagyl (high risk of cdiff in clinda use). Pt will continue vanco. Patient remains afebrile. is Neg 1700ml today Pertinent ROS: Denies headache, dizziness Denies chest pain, palpitations cough and sob improving. Denies abdominal pain, nausea or vomiting. - Constitutional Vitals: Vital Signs Temp Pulse Resp BP Pulse Ox 98.6 F 70 28 H 102/57 93 03/21/17 08:00 03/21/17 14:01 03/21/17 14:01 03/21/17 14:00 03/21/17 14:01 Period Temp Pulse Resp BP Sys/Lemon Pulse Ox Last 24 Hr 98.0 F-99.1 F 62-74 17-34 99-130/52-86 89-97 Intake and Output 03/21/17 03/21/17 03/21/17 05:59 13:59 21:59 Intake Total 338 / 338 80 / 80 250 / 250 Output Total 1270 / 1270 723 / 723 70 / 70 Balance -932 / -932 -643 / -643 180 / 180 Intake & Output: Intake & Output 03/21/17 03/21/17 03/21/17 05:59 13:59 21:59 Intake Total 338 / 338 80 / 80 250 / 250 Output Total 1270 / 1270 723 / 723 70 / 70 Balance -932 / -932 -643 / -643 180 / 180 Intake: IV 338 / 338 80 / 80 250 / 250 Cleocin 600 mg In Sodium 54 / 54 54 / 54 Chloride 0.9% 50 ml @ 100 mls/ hr IV Q8H [facility] Rx#:[id number] Lasix 250 mg In Sodium Chloride 34 / 34 26 / 26 0.9% 225 ml @ 0.5 MG/KG/HR 36. 35 mls/hr IV Q24H [facility] Rx#: [id number] Vancomycin 1,000 mg In Sodium 250 / 250 250 / 250 Chloride 0.9% 250 ml @ 250 mls/ hr IV Q12H [facility] Rx#:[id number] Output: Urine Catheter Amount 1270 / 1270 723 / 723 70 / 70 Other: Meal Lunch Percent of Meal Consumed 75% Feeding Ability Assist with Tray Set Up # Bowel Movements 1 Exam: Constitutional; Afebrile, cooperative, alert, not in distress. Eyes- No icterus, , No periorbital swelling Ears- Ext ear normal, hearing moderate hard to conversation. Neck- Midline trachea, supple Respiratory system: Air Entry equal on both sides, bibasilar crackles, inspiratory, no wheezing CVS- Rate rhythm regular, S1,S2 heard, no gallop, no rub. Abdomen- Soft nontender abdomen, no organomegaly, no tenderness, no guarding or rigidity, SUPERINTENDENT CIRCUS- AOOx3, moving all extremities, no gross focal deficit noted. Medical - PN: Obj Da - Labs CBC & Chem 7: 03/21/17 03:40 03/21/17 03:40 Labs: Abnormal Lab Results 03/21/17 03/21/1703/20/17 03:40 03:40 06:33 WBC 23.6 H RBC MCV 79.6 L MCH 25.2 L RDW 17.8 H MPV 11.0 H Lymph % (Auto) 4.1 L [place] % (Auto) 23.5 H Gran # 15.7 H Lymph # (Auto) 1.0 L [place] # (Auto) 5.6 H Eos # (Auto) 1.4 H Carbon Dioxide 21 L Anion Gap 19.0 H Glucose 116 H Calcium Phosphorus 2.5 L 2.2 L Total Bilirubin 1.4 H 1.7 H Direct Bilirubin 0.4 H 0.5 H Lactate Dehydrogenase 331 H 294 H Total Protein Urine Occult Blood Urine Urobilinogen 03/20/17 03/19/17 03/19/17 03:42 03:46 03:46 WBC 24.1 H 22.6 H RBC 5.97 H MCV 78.4 L 79.0 L MCH 25.2 L 25.4 L RDW 18.0 H 17.9 H MPV 11.6 H 11.5 H Lymph % (Auto) 4.1 L 3.8 L [place] % (Auto) 29.3 H 31.3 H Gran # 15.5 H 13.3 H Lymph # (Auto) 1.0 L 0.9 L [place] # (Auto) 7.1 H 7.1 H Eos # (Auto) 1.3 H Carbon Dioxide 21 L Anion Gap Glucose Calcium 8.5 L Phosphorus Total Bilirubin 1.3 H Direct Bilirubin 0.4 H Lactate Dehydrogenase 297 H Total Protein 5.8 L Urine Occult Blood Urine Urobilinogen 03/18/17 03/18/17 21:42 15:52 WBC 17.9 H RBC MCV 78.0 L MCH 25.4 L RDW 16.8 H MPV 11.2 H Lymph % (Auto) 6.0 L [place] % (Auto) 28.5 H Gran # 10.5 H Lymph # (Auto) 1.1 L [place] # (Auto) 5.1 H Eos # (Auto) 1.1 H Carbon Dioxide Anion Gap Glucose Calcium Phosphorus Total Bilirubin Direct Bilirubin Lactate Dehydrogenase Total Protein Urine Occult Blood 0.03 A Urine Urobilinogen 4.0 A Meds: Medications Acetaminophen (Tylenol) 650 mg PO Q4-6HP PRN PRN Reason: PAIN/FEVER > 101 Last Admin: 03/21/17 15:09 Dose: 650 mg Albuterol Sulfate (Ventolin) 2.5 mg NEB Q4HRT PRN PRN Reason: Shortness Of Breath Or Wheezing Albuterol/Ipratropium (Duoneb) 3 ml NEB Q6HRT [facility] Last Admin: 03/21/17 13:09 Dose: 3 ml Ascorbic Acid (Vitamin C) 500 mg PO DAILY [facility] Last Admin: 03/21/17 09:31 Dose: 500 mg Aspirin (Aspirin) 81 mg PO DAILY [facility] Last Admin: 03/21/17 09:30 Dose: 81 mg Aztreonam (Azactam) 2 gm IV Q8H [facility] Last Admin: 03/21/17 10:24 Dose: 2 gm [facility] Last Admin: 03/21/17 08:02 Dose: 25 mg Clopidogrel Bisulfate (Plavix) 75 mg PO DAILY [facility] Last Admin: 03/21/17 09:30 Dose: 75 mg Docusate Sodium (Colace) 100 mg PO BID [facility] Last Admin: 03/21/17 09:31 Dose: 100 mg Dobutamine HCl/Dextrose (Dobutrex) 250 mg in 250 mls @ 2.177 mls/hr IV .Q24H [facility]; 0.5 MCG/KG/MIN PRN Reason: Protocol Last Admin: 03/20/17 22:24 Dose: Not Given Furosemide 250 mg/ Sodium (Chloride) 250 mls @ 36.35 mls/hr IV Q24H [facility]; 0.5 MG /KG/HR PRN Reason: Protocol Last Titration: 03/21/17 12:06 Dose: 0.1 mg/kg/hr, 7.5 mls/hr Clindamycin Phosphate 600 mg/ (Sodium Chloride) 54 mls @ 100 mls/hr IV Q8H [facility] Last Admin: 03/21/17 14:03 Dose: 100 mls/hr Vancomycin HCl 1,000 mg/ (Sodium Chloride) 250 mls @ 250 mls/hr IV Q12H [facility] Last Infusion: 03/21/17 14:08 Dose: Infused Sodium Chloride (Sodium Chloride 0.9%) 1,000 mls @ 20 mls/hr IV .Q24H [facility] Last Admin: 03/21/17 11:35 Dose: 20 mls/hr Iron Carb/Multivit/Race Steward/Folic Acid (Multivitamin W/Minerals) 1 tab PO DAILY [facility] Last Admin: 03/21/17 09:30 Dose: 1 tab Levothyroxine Sodium (Synthroid) 88 mcg PO ACB [facility] Last Admin: 03/21/17 08:01 Dose: 88 mcg Lorazepam (Ativan) 0.5 mg IV Q2HP PRN PRN Reason: ANXIETY/SEDATION Last Admin: 03/19/17 21:53 Dose: 0.5 mg Lorazepam (Ativan) 0.5 mg PO PRN PRN PRN Reason: Anxiety Last Admin: 03/20/17 19:22 Dose: 0.5 mg Magnesium Hydroxide (Milk Of Magnesia) 30 ml PO DAILYP PRN PRN Reason: Constipation Nortriptyline HCl (Pamelor) 25 mg PO HS [facility] Last Admin: 03/20/17 20:48 Dose: 25 mg Ondansetron HCl (Zofran) 4 mg IV Q4-6HP PRN PRN Reason: Nausea And Vomiting Last Admin: 03/19/17 18:49 Dose: 4 mg Pantoprazole Sodium (Protonix) 40 mg PO QAMAC [facility] Last Admin: 03/21/17 08:01 Dose: 40 mg Ubidecarenone/Vit E Acetate [Co Q-10] 100 Mg 3 dose PO DAILY [facility] Last Admin: 03/21/17 09:31 Dose: Not Given Potassium Chloride (Kdur) 10 meq PO BIDCC [facility] Last Admin: 03/21/17 08:02 Dose: 10 meq Sertraline HCl (Zoloft) 25 mg PO DAILY [facility] Last Admin: 03/21/17 09:30 Dose: 25 mg Simvastatin (Zocor) 10 mg PO HS [facility] Last Admin: 03/20/17 20:48 Dose: 10 mg Sodium Chloride (Saline Flush) 10 ml IV Q8 [facility] Last Admin: 03/21/17 14:08 Dose: 10 ml Vancomycin HCl (Vancomycin Per Pharmacy) 1 order IV UD [facility] Vitamin D (Vitamin D3) 2,000 unit PO DAILY [facility] Last Admin: 03/21/17 09:33 Dose: 2,000 unit Medical - PN: A/P - Time Spent With Patient Total time spent is greater than 50% in coordination of care (as documented) at patient's floor/unit and/or counseling patient: - Narrative A/P Narrative: A/P hospital Acquired Pneumonia: clincally improving, wbc still high, antibiotics c hanged to vanco, aztreonam and flagyl. Monitor, repeat CXR in AM. continue with aggresive pulmonary toilet. Acute CHF exacerbation systolic and diastoilc : IV lasix drip, bp is stable at this time, continue with same, will continue coreg for now, lvef was 25% in june this year. Coronary artery disease: Not a candidate for interventions as per family (Dr Davis told them, they declined transfer to higher center) , on beta paul, dual antiplatelet agents and statin. will resume lisinopril once bp allows. COPD: stable, no wheezing on exam, on duonebs q6hrs Hypothyroidism continue levothyroxine. Depression: on zoloft continue same, DNR DNI status Cardiac diet. Medical - PN: Qual - VTE Deep Vein Thrombosis/Pulmonary Embolism Present on Admission: Yes
[2017-03-21] MEDS: metroNIDAZOLE 500 MG/100 ML BAG IV SCH ×2 (16:55→22:43)
[2017-03-21] MEDS: HEPARIN 5,000 UNIT/ML VIAL SQ SCH (20:52)
[2017-03-21] MEDS: LORazepam 0.5 MG TABLET PO PRN (20:52)
[2017-03-21] MEDS: SIMVASTATIN 10 MG TABLET PO SCH (20:52)
[2017-03-21] MEDS: NORTRIPTYLINE 25 MG CAPSULE PO SCH (21:00)
[2017-03-21] MEDS: LORazepam 2 MG/ML VIAL IV PRN (23:49)
[2017-03-22] MEDS: AZTREONAM 2 GM VIAL IV SCH ×3 (01:00→17:14)
[2017-03-22] MEDS: FUROSEMIDE 250 MG in 0.9 % SODIUM CHLORIDE 225 ML IV SCH ×2 (05:13→13:23)
[2017-03-22] MEDS: IPRATROPIUM/ALBUTEROL 3 ML AMPUL.NEB NEB SCH ×4 (05:15→19:05)
[2017-03-22 05:48] LABS: Basophils # (Auto) 0 K/mcL (0.0-0.3); Basophils % (Auto) 0.1 % (0.0-2.0); Eosinophils # (Auto) 1.9 K/mcL (0.0-0.7); Eosinophils % (Auto) 8.4 % (0.0-7.0); Granulocytes % (Auto) 70.6 % (38.0-78.0); Lymphocytes # (Auto) 0.8 K/mcL (1.5-4.8); Lymphocytes % (Auto) 3.5 % (15.5-49.0); Mean Cell Volume 79.1 fL (80.0-100.0); Mean Corpuscular Hemoglobin 25.3 pg (26.0-34.0); Monocytes # (Auto) 3.9 K/mcL (0.1-0.9); Monocytes % (Auto) 17.4 % (1.0-12.0); Platelet Count 301 K/mcL (140-440); RBC 5.65 M/mcL (4.50-5.90); Red Cell Distribution Width 17.9 % (11.5-14.5)
[2017-03-22] MEDS: 0.9 % SODIUM CHLORIDE 10 ML SYRINGE IV SCH ×3 (05:52→21:37)
[2017-03-22] MEDS: metroNIDAZOLE 500 MG/100 ML BAG IV SCH ×3 (05:52→21:37)
[2017-03-22 06:29] LABS: ALT/SGPT 39 U/l (0-40); Albumin 3.1 gm/dL (3.2-5.2); Albumin/Globulin Ratio 1.2 (1.0-2.3); Alkaline Phosphatase 105 U/L (39-117); Bilirubin,Direct 0.2 mg/dL (0.0-0.3); Blood Urea Nitrogen 21 mg/dl (8-23); Gamma Glutamyl Transpeptidase 50 U/L (8-61); Magnesium 1.7 mg/dL (1.6-2.5); Uric Acid 7.7 mg/dL (2.5-8.0)
[2017-03-22] MEDS: ASPIRIN 81 MG TAB.CHEW PO SCH (08:08)
[2017-03-22] MEDS: CLOPIDOGREL 75 MG TABLET PO SCH (08:08)
[2017-03-22] MEDS: CARVEDILOL 12.5 MG TABLET PO SCH ×2 (08:09→17:13)
[2017-03-22] MEDS: MULTIVIT,THER IRON,CA,FA & MIN 1 TABLET PO SCH (08:09)
[2017-03-22] MEDS: ASCORBIC ACID 500 MG TABLET PO SCH (08:09)
[2017-03-22] MEDS: PANTOPRAZOLE 40 MG TABLET PO SCH (08:09)
[2017-03-22] MEDS: POTASSIUM CHLORIDE 10 MEQ TABLET PO SCH ×2 (08:09→17:14)
[2017-03-22] MEDS: SERTRALINE 50 MG TABLET PO SCH (08:09)
[2017-03-22] MEDS: VITAMIN D3 1,000 UNIT TABLET PO SCH (08:10)
[2017-03-22] MEDS: HEPARIN 5,000 UNIT/ML VIAL SQ SCH ×2 (08:10→20:53)
[2017-03-22] MEDS: LEVOTHYROXINE 88 MCG TABLET PO SCH (08:19)
--- NOTE | 2017-03-22 08:47 | XRay Report ---
CLINICAL INFORMATION: CHF and pneumonia COMPARISON: 03/20/2017 FINDINGS: Marked cardiomegaly shows slight decreased. Pacemaker and leads in stable satisfactory position. Mediastinum is unremarkable. Pulmonary vessels have decreased in caliber slightly and are now only slightly distended. Interstitial edema in both lungs, predominantly in the perihilar regions, show slight improvement. There is no infiltrate seen on today's study. IMPRESSION: Improving CHF. No definite infiltrate on today's exam Interpreted and Authenticated by: Duglas Ferguson 03/22/17
--- NOTE | 2017-03-22 09:51 | Internal Med Progress Note ---
Medical - PN: Subj Patient information: Note initiated : 03/22/17 at 9:50 am Service Date, if different from initiated Date: [] Patient: Matteo Devries 87 y/o M admitted on 03/18/17 for SOB, Fever, Flank Pain, Dark Urine/CHF, Pneumonia. Chief Complaint: [] Interval history: March 18, 2017: History of present illness: Mr. Devries is a 87 year old man who was admitted to [facility] earlier this week, and discharged on Monday. His daughter reports that he had positive troponins and congestive heart failure. He was diuresed. Since discharge she has continued to decline at home. He does live alone, but she says he was having difficulty getting out of bed, and having ongoing cough and chills. He has had worsening shortness of breath over the last couple of days. The patient reports he has more orthopnea than dyspnea with exertion. ER evaluation today showed markedly elevated white blood cell count, and chest x- ray consistent with both CHF and pneumonia. He also had a fever with a temperature of 100.4. Otherwise, he also says his vision has been a little blurry, he has an earache that comes and goes, he has had a mild sore throat. Has had some intermittent chest pain, which is mainly left-sided and sharp, but inconsistent. He denies having that pain today, but the ER note said that he had some discomfort on arrival that went away when they put on oxygen. He denies headaches or dizziness, palpitations, abdominal pain, nausea or vomiting or diarrhea or constipation. He does have some chronic urinary hesitancy issues. He was advised to transfer to another hospital that had cardiology available, but the patient and his daughter know that the line assembler aircraft at [facility] that he is no longer a candidate for any procedures, and can only be medically managed. He and his family are quite adamant that he wants to be a DNR, and does not want to be transferred to a center that has more specialty care available. Patient reports he had a flu shot this season, and a Pneumovax last year. March 19: Today, the patient says he feels a little better. He continues to be somewhat vague in his history. He denies fever chills, chest pain or significant shortness of breath, GI or symptoms. T-max was 99.9, but he has been afebrile since then. White blood cell count actually bumped up to 22,000 today. Chest x-ray continues to show widespread bilateral infiltrates. Patient continues to maintain O2 saturations on low flow oxygen. March 20: Last night, we started the patient on a Lasix drip to see if we could gently diurese him. He apparently had a very brisk response to this. Nurses note he really has not dropped to systolic blood pressure much below 100 with this. He is still negative only about 400 mL since admission. He says he does not feel quite as well today, although he did sit up in a chair today. He has trouble being very specific about his symptoms. He does not believe he is having fever or chills or chest pain. He thinks he might be a little short of breath, but denies significant cough. He denies significant GI or symptoms. He remains afebrile, and heart rate is controlled. Respiratory rate is quite variable. O2 saturation on 3 L is well above 90%. White blood cell count, however, is higher today. He is on Levaquin for gram-negative coverage, vancomycin for gram-positive coverage, and clindamycin was added for anaerobic coverage. Outside of these antibiotics, he is allergic to numerous antibiotics that we would normally use. Mar 21 patient seen examined, no acute overnight issues, pt was sitting by the bed side , in chair, eating breakfast, still has some shortness of breath but today feels better than yesterday patient wbc count is still high, will change levoflox to aztreonam, change clinda to flagyl (high risk of cdiff in clinda use). Pt will continue vanco. Patient remains afebrile. is Neg 1700ml today Mar 22 Patient seen examined, still has cough and shortness of breath stable, no acute overnight events WBC count is still high despite changing ABX to aztreonam flagyl and on vanco CXR today sdoes not show any infitlrate he notes some sorness in the abdomen no Nausea, vomiting or diarrhea reported plan to get CT chest abdomen pelvis to r/o occult source of infection. Patient remains negative on I/O, on lasix drip, which he is tolerating well. Pertinent ROS: Denies headache, dizziness Denies chest pain, palpitations stable cough and shortness of breath some abdominal soreness in the lower abdomen, no nausea vomiting or diarrhea reported. - Constitutional Vitals: Vital Signs Temp Pulse Resp BP Pulse Ox 98.4 F 71 18 114/65 91 03/22/17 04:01 03/22/17 07:10 03/22/17 07:10 03/22/17 07:00 03/22/17 07:10 Period Temp Pulse Resp BP Sys/Lemon Pulse Ox Last 24 Hr 98.4 F-98.9 F 56-73 13-34 90-120/52-73 89-99 Intake and Output 03/21/17 03/22/17 03/22/17 21:59 05:59 13:59 Intake Total 690 / 690 350 / 350 100 / 100 Output Total 575 / 575 600 / 600 Balance 115 / 115 -250 / -250 100 / 100 Weight 156 lb 8 oz Intake & Output: Intake & Output 03/21/17 03/22/17 03/22/17 21:59 05:59 13:59 Intake Total 690 / 690 350 / 350 100 / 100 Output Total 575 / 575 600 / 600 Balance 115 / 115 -250 / -250 100 / 100 Weight 156 lb 8 oz Intake: IV 390 / 390 350 / 350 100 / 100 Lasix 250 mg In Sodium Chloride 40 / 40 0.9% 225 ml @ 0.5 MG/KG/HR 36. 35 mls/hr IV Q24H [facility] Rx#: [id number] Vancomycin 1,000 mg In Sodium 250 / 250 250 / 250 Chloride 0.9% 250 ml @ 250 mls/ hr IV Q12H [facility] Rx#:[id number] Oral 300 / 300 Output: Urine Catheter Amount 575 / 575 600 / 600 Other: Meal Nourishment/Supplement Percent of Meal Consumed 75% # Bowel Movements 1 0 Exam: Constitutional; Afebrile, cooperative, alert, not in distress. Eyes- No icterus, No periorbital swelling Ears- Ext ear normal, Neck- Midline trachea, supple Respiratory system: Air Entry equal on both sides,lalo crackles, left > right, CVS- Rate rhythm regular, S1,S2 heard, no gallop, no rub. Abdomen- Soft nontender abdomen, no organomegaly, no tenderness, no guarding or rigidity, SHOE REPAIRER HELPER- AOOx3, moving all extremities, no gross focal deficit noted. Medical - PN: Obj Da - Labs CBC & Chem 7: 03/22/17 03:40 03/22/17 03:40 Labs: Abnormal Lab Results 03/22/17 03/22/17 03/22/17 08:23 03:40 03:40 WBC 22.3 H RBC MCV 79.1 L MCH 25.3 L RDW 17.9 H MPV 11.4 H Lymph % (Auto) 3.5 L [place] % (Auto) 17.4 H Eos % (Auto) 8.4 H Gran # 15.7 H Lymph # (Auto) 0.8 L [place] # (Auto) 3.9 H Eos # (Auto) 1.9 H Carbon Dioxide Anion Gap Glucose Calcium 8.3 L Phosphorus Total Bilirubin Direct Bilirubin AST 55 H Lactate Dehydrogenase 318 H Total Protein 5.6 L Albumin 3.1 L Vancomycin Trough 23.0 H* 03/21/17 03/21/17 03/20/17 03:40 03:40 06:33 WBC 23.6 H RBC MCV 79.6 L MCH 25.2 L RDW 17.8 H MPV 11.0 H Lymph % (Auto) 4.1 L [place] % (Auto) 23.5 H Eos % (Auto) Gran # 15.7 H Lymph # (Auto) 1.0 L [place] # (Auto) 5.6 H Eos # (Auto) 1.4 H Carbon Dioxide 21 L Anion Gap 19.0 H Glucose 116 H Calcium Phosphorus 2.5 L 2.2 L Total Bilirubin 1.4 H 1.7 H Direct Bilirubin 0.4 H 0.5 H AST Lactate Dehydrogenase 331 H 294 H Total Protein Albumin Vancomycin Trough 03/20/17 03:42 WBC 24.1 H RBC 5.97 H MCV 78.4 L MCH 25.2 L RDW 18.0 H MPV 11.6 H Lymph % (Auto) 4.1 L [place] % (Auto) 29.3 H Eos % (Auto) Gran # 15.5 H Lymph # (Auto) 1.0 L [place] # (Auto) 7.1 H Eos # (Auto) Carbon Dioxide Anion Gap Glucose Calcium Phosphorus Total Bilirubin Direct Bilirubin AST Lactate Dehydrogenase Total Protein Albumin Vancomycin Trough Meds: Medications Acetaminophen (Tylenol) 650 mg PO Q4-6HP PRN PRN Reason: PAIN/FEVER > 101 Last Admin: 03/21/17 22:09 Dose: 650 mg Albuterol Sulfate (Ventolin) 2.5 mg NEB Q4HRT PRN PRN Reason: Shortness Of Breath Or Wheezing Albuterol/Ipratropium (Duoneb) 3 ml NEB Q6HRT [facility] Last Admin: 03/22/17 06:57 Dose: 3 ml Ascorbic Acid (Vitamin C) 500 mg PO DAILY [facility] Last Admin: 03/22/17 08:09 Dose: 500 mg Aspirin (Aspirin) 81 mg PO DAILY [facility] Last Admin: 03/22/17 08:08 Dose: 81 mg Aztreonam (Azactam) 2 gm IV Q8H [facility] Last Admin: 03/22/17 01:00 Dose: 2 gm [facility] Last Admin: 03/22/17 08:09 Dose: 25 mg Clopidogrel Bisulfate (Plavix) 75 mg PO DAILY [facility] Last Admin: 03/22/17 08:08 Dose: 75 mg Docusate Sodium (Colace) 100 mg PO BID [facility] Last Admin: 03/21/17 20:53 Dose: Not Given Heparin Sodium (Porcine) (Heparin) 5,000 unit SQ Q12 [facility] Last Admin: 03/22/17 08:10 Dose: 5,000 unit Dobutamine HCl/Dextrose (Dobutrex) 250 mg in 250 mls @ 2.177 mls/hr IV .Q24H [facility]; 0.5 MCG/KG/MIN PRN Reason: Protocol Last Admin: 03/21/17 21:02 Dose: Not Given Furosemide 250 mg/ Sodium (Chloride) 250 mls @ 36.35 mls/hr IV Q24H [facility]; 0.5 MG /KG/HR PRN Reason: Protocol Last Admin: 03/22/17 05:13 Dose: Not Given Sodium Chloride (Sodium Chloride 0.9%) 1,000 mls @ 20 mls/hr IV .Q24H [facility] Last Admin: 03/21/17 11:35 Dose: 20 mls/hr Metronidazole (Flagyl) 500 mg in 100 mls @ 100 mls/hr IV Q8H [facility] Last Infusion: 03/22/17 08:11 Dose: Infused Iron Carb/Multivit/[place]/Folic Acid (Multivitamin W/Minerals) 1 tab PO DAILY [facility] Last Admin: 03/22/17 08:09 Dose: 1 tab Levothyroxine Sodium (Synthroid) 88 mcg PO ACB [facility] Last Admin: 03/22/17 08:19 Dose: 88 mcg Lorazepam (Ativan) 0.5 mg IV Q2HP PRN PRN Reason: ANXIETY/SEDATION Last Admin: 03/21/17 23:49 Dose: 0.5 mg Lorazepam (Ativan) 0.5 mg PO PRN PRN PRN Reason: Anxiety Last Admin: 03/21/17 20:52 Dose: 0.5 mg Magnesium Hydroxide (Milk Of Magnesia) 30 ml PO DAILYP PRN PRN Reason: Constipation Nortriptyline HCl (Pamelor) 25 mg PO HS [facility] Last Admin: 03/21/17 21:00 Dose: 25 mg Ondansetron HCl (Zofran) 4 mg IV Q4-6HP PRN PRN Reason: Nausea And Vomiting Last Admin: 03/19/17 18:49 Dose: 4 mg Pantoprazole Sodium (Protonix) 40 mg PO QAMAC [facility] Last Admin: 03/22/17 08:09 Dose: 40 mg Ubidecarenone/Vit E Acetate [Co Q-10] 100 Mg 3 dose PO DAILY [facility] Last Admin: 03/21/17 09:31 Dose: Not Given Potassium Chloride (Kdur) 10 meq PO BIDCC [facility] Last Admin: 03/22/17 08:09 Dose: 10 meq Sertraline HCl (Zoloft) 25 mg PO DAILY [facility] Last Admin: 03/22/17 08:09 Dose: 25 mg Simvastatin (Zocor) 10 mg PO HS [facility] Last Admin: 03/21/17 20:52 Dose: 10 mg Sodium Chloride (Saline Flush) 10 ml IV Q8 [facility] Last Admin: 03/22/17 05:52 Dose: 10 ml Vancomycin HCl (Vancomycin Per Pharmacy) 1 order IV UD [facility] Vitamin D (Vitamin D3) 2,000 unit PO DAILY [facility] Last Admin: 03/22/17 08:10 Dose: 2,000 unit Medical - PN: A/P - Time Spent With Patient Total time spent is greater than 50% in coordination of care (as documented) at patient's floor/unit and/or counseling patient: - Narrative A/P Narrative: A/P hospital Acquired Pneumonia: clinically improving, wbc still high, antibiotics c hanged to vanco, aztreonam and flagyl. repeat cxr this AM shows chf improving no infiltrate Leucocytosis: GIven still elevated wbc despite neg CXR and antibiotics, look for alternative sources. GET CT chest abdomen and pelvis, continue IV ABX For now. Acute CHF exacerbation systolic and diastoilc : IV lasix drip, bp is stable at this time, continue with same, will continue coreg for now, lvef was 25% in june this year. patient negative, increase drip rate to hep with diuresis. Coronary artery disease: Not a candidate for interventions as per family (Dr Davis told them, they declined transfer to higher center) , on beta paul, dual antiplatelet agents and statin. will resume lisinopril once bp allows. COPD: stable, no wheezing on exam, on duonebs q6hrs Hypothyroidism continue levothyroxine. Depression: on zoloft continue same, DNR DNI status Cardiac diet. Medical - PN: Qual - VTE Deep Vein Thrombosis/Pulmonary Embolism Present on Admission: Yes
[2017-03-22] MEDS ORDERED: IOPAMIDOL 100 ML BOTTLE IJ ONE (11:51)
[2017-03-22] MEDS: VIT E ACETATE PO SCH (12:05)
[2017-03-22] MEDS: UBIDECARENONE PO SCH (12:05)
[2017-03-22] MEDS: DOCUSATE SODIUM 100 MG CAPSULE PO SCH ×3 (12:07→22:49)
[2017-03-22] MEDS: 0.9 % SODIUM CHLORIDE 1,000 ML IV SCH (12:29)
--- NOTE | 2017-03-22 13:29 | Cat Scan Report ---
CLINICAL INFORMATION: Shortness of breath the liver and flank pain COMPARISON: Abdomen and pelvic CT from 06/24/2015 and also a portion of the lungs seen on the thoracic spine CT from 08/19/2010. TECHNIQUE: Enteric contrast was utilized. 80 cc of Isovue-300 were injected intravenously, and 50 seconds later 2.5 mm helical slices were obtained from the lung apices through the subtrochanteric regions of the femurs. Following reconstruction, 2.5 mm sagittal, coronal and axial reformatted images were processed and reviewed at multiple windows and levels. 7 mm MIP reconstructions were obtained through the lungs to optimize nodule detection.The exam was performed using radiation dose optimization techniques including, but not limited to, automated exposure control, adjustment of the mA and/or kV according to patient size and use of iterative reconstruction technique. FINDINGS: Pulmonary parenchymal windows show large regions of mixed interstitial/alveolar airspace disease throughout both upper lobes and superior segments of both lower lobes with minor involvement of the central right middle lobe. The remainder of both lower lobes are spared: There is subsegmental atelectasis in the posterior left lower lobe and small bilateral pleural effusions. Mediastinal windows show marked cardiomegaly. Pacemaker leads in stable satisfactory position without evidence of wire breakage. Small calcifications are seen in the mitral valve and the aortic valves. The pulmonary arteries are mildly enlarged - the central pulmonary artery measures 3 cm. The thoracic aorta is well opacified and normal in contour and caliber. A few mildly enlarged reactive lymph nodes in the hilum and lower mediastinal region. The esophagus is grossly normal. Images through the abdomen show moderate atrophy of the pancreas which has progressed since the previous study. The gallbladder is surgically absent. Common bile duct normal caliber - 5 mm. There is a 1.6 mm nonobstructing stone superior calyx of the right kidney and a 6 mm nonobstructing stone inferior calyx of the right kidney which are unchanged. There is no evidence of obstructing stone stone or hydronephrosis. Scarring in the parenchyma of the upper right kidney seen - as before. Both adrenal glands, spleen and aorta including aortic branches are unremarkable. No free air, free fluid or adenopathy. Images through the pelvis show Leigh catheter is proper position in the urinary bladder. The urinary bladder, prostate and seminal vesicles normal normal. There are surgical clips in the mid sigmoid colon compatible with primary anastomosis following partial colectomy. The remaining colon, appendix, small bowel and stomach are grossly normal. Leg Bone windows show multiple compression fractures scattered of the thoracic and lumbar spine. BARREL RIFLER shunt catheter seen extending through the anterior right chest wall and the abdominal wall of the right upper quadrant penetrating the peritoneum in the right lower quadrant. No evidence of shunt breakage IMPRESSION: 1. Large mixed alveolar/interstitial airspace disease throughout the upper lobes and superior segment of both lower lobes and central right middle lobe. The distribution of airspace disease is somewhat atypical for edema from CHF. This may be atypically distributed edema or there may be a secondary process such as infection, aspiration or ARDS. Small bilateral pleural effusions noted 2. Moderate pancreatic atrophy progressing from the previous study 3. Mild nonobstructing stones in the calyces of both kidneys - stable. There is no evidence of obstructing stone or hydronephrosis. Interpreted and Authenticated by: Duglas Ferguson 03/22/17
[2017-03-22] MEDS ORDERED: AZITHROMYCIN 500 MG in DEXTROSE 5% IN WATER 250 ML IV ONE (17:15)
--- NOTE | 2017-03-22 20:13 | Consultation ---
DATE OF CONSULTATION: 03/22/2017 PULMONARY CONSULTATION REQUESTING: Alee Solis MD CONSULTING: Yury Lane MD PATIENT AGE: 87 HISTORY OF PRESENT ILLNESS: This patient is an 87-year-old gentleman admitted on 03/18/2017. His immediate previous history had included an admission at [facility] where he had presented with issues related to his cardiac status. Evaluation there, on review of the record, indicated an ejection fraction of his heart of 25 percent, an area of potentially at-risk myocardium, but a plan for a conservative approach. The record indicates that the family was told that no interventions were really available to the patient at this time. They have adopted a conservative course of clinical approach. The record indicates that he is DO NOT INTUBATE, DO NOT RESUSCITATE, but he was brought to [facility] because of a sense of shortness of breath. Evaluation in the emergency room was of concern for a possible sepsis syndrome and he was given some volume resuscitation. His chest x-ray demonstrated some vague infiltrates or heart failure and his white count was elevated. He was covered initially broadly with antibiotics including vancomycin, Levaquin and Cleocin. This has subsequently been adjusted to vancomycin, aztreonam and Flagyl. The patient is conversational this evening and indicates that he just does not feel as well today as yesterday. He denies significant cough or sputum production. He denies vomiting or aspiration. He denies chest pain. He has a vague sense of chills, but no ling fevers, sweats or chills. He indicates that he had a coronary artery bypass graft in the . He also has a pacemaker in place. Again his initial white count was 20Ks andhe had an elevated BNP at 6200. Troponin was negative initially. Lactic acid was only 1.5 and a procalcitonin less than 0.05. The patient was subsequently approached with a gentle diuresis in the hospital. CT scan looking for possible infectious focus in the chest, abdomen and pelvis did not elicit such. The patient reports a previous bowel resection due to colonoscopy misadventure with peritonitis some years ago, but no issues were identified. His leukocytosis has progressed since being in the hospital, despite antibiotic intervention. He is without additional information or complaints at this point. PHYSICAL EXAMINATION: HEENT: Head: Atraumatic and normocephalic. Eyes: PERRLA. EOMI. Sclerae and conjunctivae clear. NECK: Supple. Carotids without apparent bruits. LUNGS: Mildly to moderately decreased breath sounds but no ling rales, as was reported earlier prior to his gentle diuresis. HEART: Regular at this time. S1, S2. No apparent gallop, rub, jugular venous distention. There is a little dependent edema at this time. ABDOMEN: Soft. Bowel sounds are present. No apparent mass or organomegaly. EXTREMITIES: Bones, joints and extremities without acute changes. LABORATORY DATA: Collected thus far includes his serial CBCs with a good hemoglobin and hematocrit. White count initially at 20,000, now in the 22,000 to 23,000 range. BUN and creatinine have been stable at 20 and 1.0. LDH has been elevated in the 300 range. Serology for mycoplasma pneumonia IgM is negative; for Legionella and pneumonia is pending. IMPRESSION: Gentleman who appears remarkably well, given all of the history above at this point in time. Unfortunately, given his radiographic appearance and white count, he needs to continue to be covered for a possible atypical pneumonia. I agree with the current antibiotic regimen. I wonder if this is not just a complex presentation of heart failure. I cannot identify other issues in his work history or other that would contribute to his current state of affairs. I would suggest careful fluid management as left ventricular distention pressures probably have a narrow range of functionality. I agree with your careful plan as you are currently doing in that regard. I will discuss and follow with. It is noted that chronic obstructive pulmonary disease is listed in the medical record, but the patient indicates that he was a never smoker and I am not sure where that information comes from, a curious thing. I will discuss and follow with. Thank you for the opportunity to participate in the care of this very pleasant and seriously ill gentleman. NARCISO:nancy Job ID: [id number] Doc ID: [id number] Yury DEL CASTILLO
[2017-03-22] MEDS: NORTRIPTYLINE 25 MG CAPSULE PO SCH (20:53)
[2017-03-22] MEDS: SIMVASTATIN 10 MG TABLET PO SCH (20:53)
[2017-03-22] MEDS: LORazepam 2 MG/ML VIAL IV PRN (22:48)
[2017-03-23] MEDS: IPRATROPIUM/ALBUTEROL 3 ML AMPUL.NEB NEB SCH ×3 (01:07→13:23)
[2017-03-23] MEDS: AZTREONAM 2 GM VIAL IV SCH ×3 (01:07→19:30)
[2017-03-23 05:46] LABS: ALT/SGPT 31 U/l (0-40); Albumin 3.1 gm/dL (3.2-5.2); Albumin/Globulin Ratio 1.2 (1.0-2.3); Alkaline Phosphatase 107 U/L (39-117); Bilirubin,Direct < 0.2 mg/dL (0.0-0.3); Blood Urea Nitrogen 21 mg/dl (8-23); Gamma Glutamyl Transpeptidase 52 U/L (8-61); Magnesium 1.8 mg/dL (1.6-2.5); Uric Acid 7.7 mg/dL (2.5-8.0)
[2017-03-23] MEDS: 0.9 % SODIUM CHLORIDE 10 ML SYRINGE IV SCH ×4 (05:49→23:41)
[2017-03-23] MEDS: metroNIDAZOLE 500 MG/100 ML BAG IV SCH ×2 (05:49→13:29)
[2017-03-23] MEDS ORDERED: MAGNESIUM SULFATE 2 GM/50 ML BAG IV ONE (07:21)
[2017-03-23] MEDS ORDERED: POTASSIUM CHLORIDE 20 MEQ PACKET PO ONE (07:21)
[2017-03-23 07:22] LABS: Basophils # (Auto) 0 K/mcL (0.0-0.3); Basophils % (Auto) 0 % (0.0-2.0); Eosinophils # (Auto) 1.9 K/mcL (0.0-0.7); Eosinophils % (Auto) 8.3 % (0.0-7.0); Granulocytes % (Auto) 65.4 % (38.0-78.0); Lymphocytes # (Auto) 1.2 K/mcL (1.5-4.8); Lymphocytes % (Auto) 5.4 % (15.5-49.0); Mean Cell Volume 78.9 fL (80.0-100.0); Mean Corpuscular HGB Conc 31.3 g/dL (31.0-36.0); Mean Corpuscular Hemoglobin 24.7 pg (26.0-34.0); Monocytes # (Auto) 4.7 K/mcL (0.1-0.9); Monocytes % (Auto) 20.9 % (1.0-12.0); Platelet Count 355 K/mcL (140-440); RBC 5.81 M/mcL (4.50-5.90); Red Cell Distribution Width 17.5 % (11.5-14.5)
[2017-03-23] MEDS: LEVOTHYROXINE 88 MCG TABLET PO SCH (07:44)
[2017-03-23] MEDS: PANTOPRAZOLE 40 MG TABLET PO SCH (07:45)
[2017-03-23] MEDS ORDERED: DOXYCYCLINE HYCLATE 100 MG TABLET.ORL PO SCH (09:00)
[2017-03-23] MEDS ORDERED: VANCOMYCIN 1,000 MG in DEXTROSE 5% IN WATER 250 ML IV ONE (09:00)
[2017-03-23] MEDS: MULTIVIT,THER IRON,CA,FA & MIN 1 TABLET PO SCH (09:33)
[2017-03-23] MEDS: HEPARIN 5,000 UNIT/ML VIAL SQ SCH (09:33)
[2017-03-23] MEDS: VITAMIN D3 1,000 UNIT TABLET PO SCH (09:33)
[2017-03-23] MEDS: CLOPIDOGREL 75 MG TABLET PO SCH (09:34)
[2017-03-23] MEDS: CARVEDILOL 12.5 MG TABLET PO SCH ×2 (09:34→19:31)
[2017-03-23] MEDS: ASPIRIN 81 MG TAB.CHEW PO SCH (09:34)
[2017-03-23] MEDS: SERTRALINE 50 MG TABLET PO SCH (09:34)
[2017-03-23] MEDS: ASCORBIC ACID 500 MG TABLET PO SCH (09:35)
[2017-03-23] MEDS: DOCUSATE SODIUM 100 MG CAPSULE PO SCH ×2 (09:35→21:00)
[2017-03-23] MEDS: VIT E ACETATE PO SCH (09:35)
[2017-03-23] MEDS: UBIDECARENONE PO SCH (09:35)
[2017-03-23] MEDS: POTASSIUM CHLORIDE 10 MEQ TABLET PO SCH ×2 (09:36→19:31)
--- NOTE | 2017-03-23 11:51 | Internal Med Progress Note ---
Medical - PN: Subj Patient information: Note initiated : 03/23/17 at 11:48 am Service Date, if different from initiated Date: [] Patient: Matteo Devries 87 y/o M admitted on 03/18/17 for SOB, Fever, Flank Pain, Dark Urine/CHF, Pneumonia. Chief Complaint: [] Interval history: March 18, 2017: History of present illness: Mr. Devries is a 87 year old man who was admitted to [facility] earlier this week, and discharged on Monday. His daughter reports that he had positive troponins and congestive heart failure. He was diuresed. Since discharge she has continued to decline at home. He does live alone, but she says he was having difficulty getting out of bed, and having ongoing cough and chills. He has had worsening shortness of breath over the last couple of days. The patient reports he has more orthopnea than dyspnea with exertion. ER evaluation today showed markedly elevated white blood cell count, and chest x- ray consistent with both CHF and pneumonia. He also had a fever with a temperature of 100.4. Otherwise, he also says his vision has been a little blurry, he has an earache that comes and goes, he has had a mild sore throat. Has had some intermittent chest pain, which is mainly left-sided and sharp, but inconsistent. He denies having that pain today, but the ER note said that he had some discomfort on arrival that went away when they put on oxygen. He denies headaches or dizziness, palpitations, abdominal pain, nausea or vomiting or diarrhea or constipation. He does have some chronic urinary hesitancy issues. He was advised to transfer to another hospital that had cardiology available, but the patient and his daughter know that the blow down helper at [facility] that he is no longer a candidate for any procedures, and can only be medically managed. He and his family are quite adamant that he wants to be a DNR, and does not want to be transferred to a center that has more specialty care available. Patient reports he had a flu shot this season, and a Pneumovax last year. March 19: Today, the patient says he feels a little better. He continues to be somewhat vague in his history. He denies fever chills, chest pain or significant shortness of breath, GI or symptoms. T-max was 99.9, but he has been afebrile since then. White blood cell count actually bumped up to 22,000 today. Chest x-ray continues to show widespread bilateral infiltrates. Patient continues to maintain O2 saturations on low flow oxygen. March 20: Last night, we started the patient on a Lasix drip to see if we could gently diurese him. He apparently had a very brisk response to this. Nurses note he really has not dropped to systolic blood pressure much below 100 with this. He is still negative only about 400 mL since admission. He says he does not feel quite as well today, although he did sit up in a chair today. He has trouble being very specific about his symptoms. He does not believe he is having fever or chills or chest pain. He thinks he might be a little short of breath, but denies significant cough. He denies significant GI or symptoms. He remains afebrile, and heart rate is controlled. Respiratory rate is quite variable. O2 saturation on 3 L is well above 90%. White blood cell count, however, is higher today. He is on Levaquin for gram-negative coverage, vancomycin for gram-positive coverage, and clindamycin was added for anaerobic coverage. Outside of these antibiotics, he is allergic to numerous antibiotics that we would normally use. Mar 21 patient seen examined, no acute overnight issues, pt was sitting by the bed side , in chair, eating breakfast, still has some shortness of breath but today feels better than yesterday patient wbc count is still high, will change levoflox to aztreonam, change clinda to flagyl (high risk of cdiff in clinda use). Pt will continue vanco. Patient remains afebrile. is Neg 1700ml today Mar 22 Patient seen examined, still has cough and shortness of breath stable, no acute overnight events WBC count is still high despite changing ABX to aztreonam flagyl and on vanco CXR today sdoes not show any infitlrate he notes some sorness in the abdomen no Nausea, vomiting or diarrhea reported plan to get CT chest abdomen pelvis to r/o occult source of infection. Patient remains negative on I/O, on lasix drip, which he is tolerating well. Mar 23 patient seen examined, no acute overnight issues, patient was lying in bed comfortably, but is very tired and fatigued, feels weak denies any chest pain or sob, he is negative 2339 since admission, continue gentle hydration continue with antibiotics, doxy added for atypical coverage, wbc stil lhigh, etiology? atypical pna vs chf appreciate Puml consult, will complete 7-10 days of pna treatment and then stop the antibiotics and see hwo the patient progresses. Chest CT abdo pelvis not showing any other source besides likely the lung Pertinent ROS: Denies headache, dizziness Denies chest pain, palpitations Denies cough or shortness of breath Denies abdominal pain, nausea or vomiting. - Constitutional Vitals: Vital Signs Temp Pulse Resp BP Pulse Ox 99.2 F H 78 14 135/73 93 03/23/17 05:02 03/23/17 07:10 03/23/17 07:10 03/23/17 06:01 03/23/17 07:10 Period Temp Pulse Resp BP Sys/Lemon Pulse Ox Last 24 Hr 98.6 F-99.6 F 43-78 14-32 83-153/51-85 88-97 Intake and Output 03/22/17 03/23/17 03/23/17 21:59 05:59 13:59 Intake Total 340 / 340 550 / 550 Output Total 1480 / 1480 700 / 700 Balance -1140 / -1140 -150 / -150 Weight 157 lb 9.6 oz Intake & Output: Intake & Output 03/22/17 03/23/17 03/23/17 21:59 05:59 13:59 Intake Total 340 / 340 550 / 550 Output Total 1480 / 1480 700 / 700 Balance -1140 / -1140 -150 / -150 Weight 157 lb 9.6 oz Intake: IV 100 / 100 100 / 100 Oral 240 / 240 450 / 450 Output: Urine Catheter Amount 1180 / 1180 700 / 700 Stool 300 / 300 Other: Meal Dinner Percent of Meal Consumed 50% Feeding Ability Assist with Tray Set Up Exam: Constitutional; Afebrile, cooperative, alert, not in distress. Eyes- No icterus, , No periorbital swelling Ears- Ext ear normal, Neck- Midline trachea, supple Respiratory system: Air Entry equal on both sides, No crackles or wheezing, no rhonchi. CVS- Rate rhythm regular, S1,S2 heard, no gallop, no rub. Abdomen- Soft nontender abdomen, no organomegaly, no tenderness, no guarding or rigidity, MINING SPECULATOR- AOOx3, moving all extremities, no gross focal deficit noted. Medical - PN: Obj Da - Labs CBC & Chem 7: 03/23/17 04:00 03/23/17 04:00 Labs: Abnormal Lab Results 03/23/17 03/23/17 03/22/17 04:00 04:00 08:23 WBC 22.5 H MCV 78.9 L MCH 24.7 L RDW 17.5 H MPV 11.3 H Lymph % (Auto) 5.4 L [place] % (Auto) 20.9 H Eos % (Auto) 8.3 H Gran # 14.7 H Lymph # (Auto) 1.2 L [place] # (Auto) 4.7 H Eos # (Auto) 1.9 H Carbon Dioxide Anion Gap 18.0 H Calcium Phosphorus 2.6 L Total Bilirubin Direct Bilirubin AST Lactate Dehydrogenase 328 H Total Protein 5.7 L Albumin 3.1 L Vancomycin Trough 23.0 H* 03/22/17 03/22/17 03/21/17 03:40 03:40 03:40 WBC 22.3 H 23.6 H MCV 79.1 L 79.6 L MCH 25.3 L 25.2 L RDW 17.9 H 17.8 H MPV 11.4 H 11.0 H Lymph % (Auto) 3.5 L 4.1 L [place] % (Auto) 17.4 H 23.5 H Eos % (Auto) 8.4 H Gran # 15.7 H 15.7 H Lymph # (Auto) 0.8 L 1.0 L [place] # (Auto) 3.9 H 5.6 H Eos # (Auto) 1.9 H 1.4 H Carbon Dioxide Anion Gap Calcium 8.3 L Phosphorus Total Bilirubin Direct Bilirubin AST 55 H Lactate Dehydrogenase 318 H Total Protein 5.6 L Albumin 3.1 L Vancomycin Trough 03/21/17 03:40 WBC MCV MCH RDW MPV Lymph % (Auto) [place] % (Auto) Eos % (Auto) Gran # Lymph # (Auto) [place] # (Auto) Eos # (Auto) Carbon Dioxide 21 L Anion Gap 19.0 H Calcium Phosphorus 2.5 L Total Bilirubin 1.4 H Direct Bilirubin 0.4 H AST Lactate Dehydrogenase 331 H Total Protein Albumin Vancomycin Trough Meds: Medications Acetaminophen (Tylenol) 650 mg PO Q4-6HP PRN PRN Reason: PAIN/FEVER > 101 Last Admin: 03/21/17 22:09 Dose: 650 mg Albuterol Sulfate (Ventolin) 2.5 mg NEB Q4HRT PRN PRN Reason: Shortness Of Breath Or Wheezing Albuterol/Ipratropium (Duoneb) 3 ml NEB Q6HRT [facility] Last Admin: 03/23/17 07:07 Dose: 3 ml Ascorbic Acid (Vitamin C) 500 mg PO DAILY [facility] Last Admin: 03/23/17 09:35 Dose: 500 mg Aspirin (Aspirin) 81 mg PO DAILY [facility] Last Admin: 03/23/17 09:34 Dose: 81 mg Aztreonam (Azactam) 2 gm IV Q8H [facility] Last Admin: 03/23/17 10:01 Dose: 2 gm [facility] Admin: 03/23/17 09:34 Dose: 25 mg Clopidogrel Bisulfate (Plavix) 75 mg PO DAILY [facility] Last Admin: 03/23/17 09:34 Dose: 75 mg Docusate Sodium (Colace) 100 mg PO BID [facility] Last Admin: 03/23/17 09:35 Dose: Not Given Doxycycline Hyclate (Doxycycline Hyclate) 100 mg PO BID [facility] Last Admin: 03/23/17 09:59 Dose: 100 mg Heparin Sodium (Porcine) (Heparin) 5,000 unit SQ Q12 [facility] Last Admin: 03/23/17 09:33 Dose: 5,000 unit Dobutamine HCl/Dextrose (Dobutrex) 250 mg in 250 mls @ 2.177 mls/hr IV .Q24H GLORIA; 0.5 MCG/KG/MIN PRN Reason: Protocol Last Admin: 03/22/17 21:25 Dose: Not Given Furosemide 250 mg/ Sodium (Chloride) 250 mls @ 36.35 mls/hr IV Q24H GLORIA; 0.5 MG /KG/HR PRN Reason: Protocol Last Admin: 03/22/17 13:23 Dose: 0.05 mg/kg/hr, 4 mls/hr Sodium Chloride (Sodium Chloride 0.9%) 1,000 mls @ 20 mls/hr IV .Q24H [facility] Last Admin: 03/22/17 12:29 Dose: 20 mls/hr Metronidazole (Flagyl) 500 mg in 100 mls @ 100 mls/hr IV Q8H [facility] Last Admin: 03/23/17 05:49 Dose: 100 mls/hr Iron Carb/Multivit/Deuel/Folic Acid (Multivitamin W/Minerals) 1 tab PO DAILY [facility] Last Admin: 03/23/17 09:33 Dose: 1 tab Levothyroxine Sodium (Synthroid) 88 mcg PO ACB [facility] Last Admin: 03/23/17 07:44 Dose: 88 mcg Lorazepam (Ativan) 0.5 mg IV Q2HP PRN PRN Reason: ANXIETY/SEDATION Last Admin: 03/22/17 22:48 Dose: 0.5 mg Lorazepam (Ativan) 0.5 mg PO PRN PRN PRN Reason: Anxiety Last Admin: 03/21/17 20:52 Dose: 0.5 mg Magnesium Hydroxide (Milk Of Magnesia) 30 ml PO DAILYP PRN PRN Reason: Constipation Nortriptyline HCl (Pamelor) 25 mg PO HS [facility] Last Admin: 03/22/17 20:53 Dose: 25 mg Ondansetron HCl (Zofran) 4 mg IV Q4-6HP PRN PRN Reason: Nausea And Vomiting Last Admin: 03/19/17 18:49 Dose: 4 mg Pantoprazole Sodium (Protonix) 40 mg PO QAMAC [facility] Last Admin: 03/23/17 07:45 Dose: 40 mg Ubidecarenone/Vit E Acetate [Co Q-10] 100 Mg 3 dose PO DAILY [facility] Last Admin: 03/23/17 09:35 Dose: Not Given Potassium Chloride (Kdur) 10 meq PO BIDCC [facility] Last Admin: 03/23/17 09:36 Dose: 10 meq Sertraline HCl (Zoloft) 25 mg PO DAILY [facility] Last Admin: 03/23/17 09:34 Dose: 25 mg Simvastatin (Zocor) 10 mg PO HS [facility] Last Admin: 03/22/17 20:53 Dose: 10 mg Sodium Chloride (Saline Flush) 10 ml IV Q8 [facility] Last Admin: 03/23/17 05:49 Dose: 10 ml Vancomycin HCl (Vancomycin Per Pharmacy) 1 order IV UD [facility] Vitamin D (Vitamin D3) 2,000 unit PO DAILY [facility] Last Admin: 03/23/17 09:33 Dose: 2,000 unit Medical - PN: A/P - Time Spent With Patient Total time spent is greater than 50% in coordination of care (as documented) at patient's floor/unit and/or counseling patient: - Narrative A/P Narrative: A/P hospital Acquired Pneumonia: clinically improving, wbc still high, antibiotics c hanged to vanco, aztreonam and flagyl. doxy added today for atypical coverage. Leucocytosis: Given still elevated wbc despite neg CXR and antibiotics, look for alternative sources. CT chest abdo pelvis shows atypical chf vs inflmmation on lungs, PUlm ealuated the patient and agree with the present plan of care. Acute CHF exacerbation systolic and diastoilc : IV lasix drip, bp is stable at this time, continue with same, will continue coreg for now, lvef was 25-30 with moderate pulm htn on echo done at [facility] this month. target 75-100cc /hr of urine output by lasix drip. Coronary artery disease: Not a candidate for interventions as per family (Dr Davis told them, they declined transfer to higher center) , on beta paul, dual antiplatelet agents and statin. will resume lisinopril once bp allows. COPD: stable, no wheezing on exam, on duonebs q6hrs Hypothyroidism continue levothyroxine. Depression: on zoloft continue same, DNR DNI status Cardiac diet. Medical - PN: Qual - VTE Deep Vein Thrombosis/Pulmonary Embolism Present on Admission: Yes
[2017-03-23] MEDS: 0.9 % SODIUM CHLORIDE 1,000 ML IV SCH (12:04)
[2017-03-23 15:36] LABS: Control Score 144
[2017-03-23] MEDS ORDERED: AZITHROMYCIN 500 MG in DEXTROSE 5% IN WATER 250 ML IV SCH (17:15)
[2017-03-23] MEDS ORDERED: LORazepam 2 MG/ML VIAL IV PRN (18:59)
[2017-03-23] MEDS ORDERED: HYDROmorphone 2 MG/ML SYRINGE IV PRN ×2 (18:59→19:22)
[2017-03-23] MEDS ORDERED: LACTOPEROXI/GLUC OXID/POT THIO 1 EACH GEL..EA. TOPICAL PRN ×2 (18:59→19:22)
[2017-03-23] MEDS ORDERED: ALBUTEROL SULFATE 2.5 MG/3 ML NEBULIZER NEB PRN (19:22)
[2017-03-23] MEDS ORDERED: MAGNESIUM HYDROXIDE 30 ML ORAL.SUSP PO PRN (19:22)
[2017-03-23] MEDS ORDERED: ACETAMINOPHEN 325 MG TABLET PO PRN (19:22)
[2017-03-23] MEDS ORDERED: ONDANSETRON 4 MG/2 ML VIAL IV PRN (19:22)
[2017-03-23] MEDS: FUROSEMIDE 250 MG in 0.9 % SODIUM CHLORIDE 225 ML IV SCH (19:30)
[2017-03-23] MEDS ORDERED: 0.9 % SODIUM CHLORIDE 10 ML SYRINGE IV SCH (22:00)
[2017-03-23] MEDS: LORazepam 2 MG/ML VIAL IV PRN (23:41)
[2017-03-24] MEDS: 0.9 % SODIUM CHLORIDE 10 ML SYRINGE IV SCH ×7 (06:02→22:33)
[2017-03-24] MEDS: PANTOPRAZOLE 40 MG TABLET PO SCH (08:18)
[2017-03-24] MEDS: SERTRALINE 50 MG TABLET PO SCH (09:03)
[2017-03-24] MEDS: DOCUSATE SODIUM 100 MG CAPSULE PO SCH ×2 (09:04→21:51)
[2017-03-24 09:08] LABS: Legionella pneumophilia Ag, Ur NOT DETECTED
[2017-03-24] MEDS ORDERED: KETOROLAC 15 MG/ML VIAL IV PRN (11:30)
[2017-03-24] MEDS ORDERED: NAPROXEN 250 MG TABLET PO PRN (11:43)
--- NOTE | 2017-03-24 16:21 | Internal Med Progress Note ---
Medical - PN: Subj Patient information: Note initiated : 03/24/17 at 4:18 pm Service Date, if different from initiated Date: [] Patient: Matteo Devries 87 y/o M admitted on 03/18/17 for SOB, Fever, Flank Pain, Dark Urine/CHF, Pneumonia. Chief Complaint: [] Interval history: March 18, 2017: History of present illness: Mr. Devries is a 87 year old man who was admitted to [facility] earlier this week, and discharged on Monday. His daughter reports that he had positive troponins and congestive heart failure. He was diuresed. Since discharge she has continued to decline at home. He does live alone, but she says he was having difficulty getting out of bed, and having ongoing cough and chills. He has had worsening shortness of breath over the last couple of days. The patient reports he has more orthopnea than dyspnea with exertion. ER evaluation today showed markedly elevated white blood cell count, and chest x- ray consistent with both CHF and pneumonia. He also had a fever with a temperature of 100.4. Otherwise, he also says his vision has been a little blurry, he has an earache that comes and goes, he has had a mild sore throat. Has had some intermittent chest pain, which is mainly left-sided and sharp, but inconsistent. He denies having that pain today, but the ER note said that he had some discomfort on arrival that went away when they put on oxygen. He denies headaches or dizziness, palpitations, abdominal pain, nausea or vomiting or diarrhea or constipation. He does have some chronic urinary hesitancy issues. He was advised to transfer to another hospital that had cardiology available, but the patient and his daughter know that the gaming cashier at [facility] that he is no longer a candidate for any procedures, and can only be medically managed. He and his family are quite adamant that he wants to be a DNR, and does not want to be transferred to a center that has more specialty care available. Patient reports he had a flu shot this season, and a Pneumovax last year. March 19: Today, the patient says he feels a little better. He continues to be somewhat vague in his history. He denies fever chills, chest pain or significant shortness of breath, GI or symptoms. T-max was 99.9, but he has been afebrile since then. White blood cell count actually bumped up to 22,000 today. Chest x-ray continues to show widespread bilateral infiltrates. Patient continues to maintain O2 saturations on low flow oxygen. March 20: Last night, we started the patient on a Lasix drip to see if we could gently diurese him. He apparently had a very brisk response to this. Nurses note he really has not dropped to systolic blood pressure much below 100 with this. He is still negative only about 400 mL since admission. He says he does not feel quite as well today, although he did sit up in a chair today. He has trouble being very specific about his symptoms. He does not believe he is having fever or chills or chest pain. He thinks he might be a little short of breath, but denies significant cough. He denies significant GI or symptoms. He remains afebrile, and heart rate is controlled. Respiratory rate is quite variable. O2 saturation on 3 L is well above 90%. White blood cell count, however, is higher today. He is on Levaquin for gram-negative coverage, vancomycin for gram-positive coverage, and clindamycin was added for anaerobic coverage. Outside of these antibiotics, he is allergic to numerous antibiotics that we would normally use. Mar 21 patient seen examined, no acute overnight issues, pt was sitting by the bed side , in chair, eating breakfast, still has some shortness of breath but today feels better than yesterday patient wbc count is still high, will change levoflox to aztreonam, change clinda to flagyl (high risk of cdiff in clinda use). Pt will continue vanco. Patient remains afebrile. is Neg 1700ml today Mar 22 Patient seen examined, still has cough and shortness of breath stable, no acute overnight events WBC count is still high despite changing ABX to aztreonam flagyl and on vanco CXR today sdoes not show any infitlrate he notes some sorness in the abdomen no Nausea, vomiting or diarrhea reported plan to get CT chest abdomen pelvis to r/o occult source of infection. Patient remains negative on I/O, on lasix drip, which he is tolerating well. Mar 23 patient seen examined, no acute overnight issues, patient was lying in bed comfortably, but is very tired and fatigued, feels weak denies any chest pain or sob, he is negative 2339 since admission, continue gentle hydration continue with antibiotics, doxy added for atypical coverage, wbc stil lhigh, etiology? atypical pna vs chf appreciate Puml consult, will complete 7-10 days of pna treatment and then stop the antibiotics and see hwo the patient progresses. Chest CT abdo pelvis not showing any other source besides likely the lung Mar 24 Patient seen examined, no acute overnight events reported Last evening I was called to the patients room to discuss goals of treatment and patient and family expressed their desire for Comfort care for patient, therefor patient has now been placed on comfort care he is comfortable and does not endorse any issues to me, he did mention some hand pain to the nurse wanting some anti inflammatory medications alleve advised The patient is on dilaudid and lorazepam for palliative purposes. Off IV antibiotics, no further labs or invasive testing is being performed. Plan for d/c to snf with palliative care vs home with hospice depending on family wishes. Pertinent ROS: Denies headache, dizziness Denies chest pain, palpitations Denies cough or shortness of breath Denies abdominal pain, nausea or vomiting. - Constitutional Vitals: Vital Signs Temp Pulse Resp BP Pulse Ox 98.0 F 70 20 109/69 95 03/24/17 11:00 03/23/17 17:01 03/24/17 11:00 03/24/17 11:00 03/24/17 11:00 Period Temp Pulse Resp BP Sys/Lemon Pulse Ox Last 24 Hr 98.0 F 70-70 20-26 105-109/61-69 92-95 Intake and Output 03/24/17 03/24/17 03/24/17 05:59 13:59 21:59 Intake Total 120 / 120 280 / 280 500 / 500 Output Total 500 / 500 550 / 550 Balance -380 / -380 280 / 280 -50 / -50 Intake & Output: Intake & Output 03/24/17 03/24/17 03/24/17 05:59 13:59 21:59 Intake Total 120 / 120 280 / 280 500 / 500 Output Total 500 / 500 550 / 550 Balance -380 / -380 280 / 280 -50 / -50 Intake: IV 100 / 100 Oral 120 / 120 180 / 180 500 / 500 Output: Urine Catheter Amount 500 / 500 550 / 550 Other: Meal Nourishment/Supplement Breakfast Percent of Meal Consumed 100% 100% Feeding Ability Independent # Bowel Movements 1 Exam: Constitutional; Afebrile, cooperative, alert, not in distress. Eyes- No icterus, , No periorbital swelling Ears- Ext ear normal, hearing normal to conversation.(when using hearing aid) Neck- Midline trachea, supple Respiratory system: Air Entry equal on both sides, No crackles or wheezing, no rhonchi. CVS- Rate rhythm regular, S1,S2 heard, no gallop, no rub. Abdomen- Soft nontender abdomen, no organomegaly, no tenderness, no guarding or rigidity, LUMBER BEARER- AOOx3, moving all extremities, no gross focal deficit noted. Medical - PN: Obj Da - Labs CBC & Chem 7: 03/23/17 04:00 03/23/17 04:00 Labs: Abnormal Lab Results 03/23/17 03/23/17 03/22/17 04:00 04:00 08:23 WBC 22.5 H MCV 78.9 L MCH 24.7 L RDW 17.5 H MPV 11.3 H Lymph % (Auto) 5.4 L [place] % (Auto) 20.9 H Eos % (Auto) 8.3 H Gran # 14.7 H Lymph # (Auto) 1.2 L [place] # (Auto) 4.7 H Eos # (Auto) 1.9 H Anion Gap 18.0 H Calcium Phosphorus 2.6 L AST Lactate Dehydrogenase 328 H Total Protein 5.7 L Albumin 3.1 L Vancomycin Trough 23.0 H* 03/22/17 03/22/17 03:40 03:40 WBC 22.3 H MCV 79.1 L MCH 25.3 L RDW 17.9 H MPV 11.4 H Lymph % (Auto) 3.5 L [place] % (Auto) 17.4 H Eos % (Auto) 8.4 H Gran # 15.7 H Lymph # (Auto) 0.8 L [place] # (Auto) 3.9 H Eos # (Auto) 1.9 H Anion Gap Calcium 8.3 L Phosphorus AST 55 H Lactate Dehydrogenase 318 H Total Protein 5.6 L Albumin 3.1 L Vancomycin Trough Meds: Medications Acetaminophen (Tylenol) 650 mg PO Q4-6HP PRN PRN Reason: PAIN/FEVER > 101 Albuterol Sulfate (Ventolin) 2.5 mg NEB Q4HRT PRN PRN Reason: Shortness Of Breath Or Wheezing Docusate Sodium (Colace) 100 mg PO BID [facility] Last Admin: 03/24/17 09:04 Dose: Not Given Glucose Oxid/Lactoperoxid/Muramidas (Biotene) 1 each TOPICAL PRN PRN PRN Reason: Dry Mouth Hydromorphone HCl (Dilaudid) 0 mg IV Q2HP PRN PRN Reason: Pain Lorazepam (Ativan) 0 mg IV Q1HP PRN; Protocol PRN Reason: ANXIETY/SEDATION Last Admin: 03/23/17 23:41 Dose: 1 mg Magnesium Hydroxide (Milk Of Magnesia) 30 ml PO DAILYP PRN PRN Reason: Constipation Naproxen (Naprosyn) 500 mg PO BID PRN PRN Reason: Pain Last Admin: 03/24/17 11:55 Dose: 500 mg Ondansetron HCl (Zofran) 4 mg IV Q4-6HP PRN PRN Reason: Nausea And Vomiting Pantoprazole Sodium (Protonix) 40 mg PO QAMAC [facility] Last Admin: 03/24/17 08:18 Dose: 40 mg Sertraline HCl (Zoloft) 25 mg PO DAILY [facility] Last Admin: 03/24/17 09:03 Dose: 25 mg Sodium Chloride (Saline Flush) 10 ml IV Q8 [facility] Last Admin: 03/24/17 14:19 Dose: 10 ml Medical - PN: A/P - Time Spent With Patient Total time spent is greater than 50% in coordination of care (as documented) at patient's floor/unit and/or counseling patient: - Narrative A/P Narrative: A/P hospital Acquired Pneumonia: clinically improving, wbc still high, antibiotics stopped in light of palliative care Palliative/ comfort care: d/c antibiotics and invasive testing, dilaudid and lorazepam for now. Leucocytosis: etiology likely lung, but now off all abx given palliative tatus Acute CHF exacerbation systolic and diastoilc : d/c drip. Coronary artery disease: Not a candidate for interventions as per family (Dr Davis told them, they declined transfer to higher center) ,off all non comfort medications COPD: stable, no wheezing on exam, on duonebs q6hrs DNR DNI status Cardiac diet. patient is palliative care now, and family is deciding on further disposition. case management to help with same. Medical - PN: Qual - VTE Deep Vein Thrombosis/Pulmonary Embolism Present on Admission: Yes
[2017-03-24] MEDS ORDERED: VANCOMYCIN PER PHARMACY IV SCH (17:49)
--- NOTE | 2017-03-24 17:55 | Internal Med Progress Note ---
Medical - Auxillary Note - Subjective Patient Information: Note initiated : 03/24/17 at 5:49 pm Service Date, if different from initiated Date: [] Patient: Matteo Devries 87 y/o M admitted on 03/18/17 for SOB, Fever, Flank Pain, Dark Urine/CHF, Pneumonia. Chief Complaint: [] Vital Signs Temp Pulse Resp BP Pulse Ox 98.0 F 70 20 109/69 95 03/24/17 11:00 03/23/17 17:01 03/24/17 11:00 03/24/17 11:00 03/24/17 11:00 Period Temp Pulse Resp BP Sys/Lemon Pulse Ox Last 24 Hr 98.0 F 20 109/69 95-95 Intake and Output 03/24/17 03/24/17 03/24/17 05:59 13:59 21:59 Intake Total 120 / 120 280 / 280 500 / 500 Output Total 500 / 500 550 / 550 Balance -380 / -380 280 / 280 -50 / -50 Medications Acetaminophen (Tylenol) 650 mg PO Q4-6HP PRN PRN Reason: PAIN/FEVER > 101 Albuterol Sulfate (Ventolin) 2.5 mg NEB Q4HRT PRN PRN Reason: Shortness Of Breath Or Wheezing Aztreonam (Azactam) 2 gm IV Q12H [facility] Docusate Sodium (Colace) 100 mg PO BID [facility] Last Admin: 03/24/17 09:04 Dose: Not Given Doxycycline Hyclate (Doxycycline Hyclate) 100 mg PO BID [facility] Glucose Oxid/Lactoperoxid/Muramidas (Biotene) 1 each TOPICAL PRN PRN PRN Reason: Dry Mouth Hydromorphone HCl (Dilaudid) 0 mg IV Q2HP PRN PRN Reason: Pain Lorazepam (Ativan) 0 mg IV Q1HP PRN; Protocol PRN Reason: ANXIETY/SEDATION Last Admin: 03/23/17 23:41 Dose: 1 mg Magnesium Hydroxide (Milk Of Magnesia) 30 ml PO DAILYP PRN PRN Reason: Constipation Metronidazole (Flagyl) 500 mg PO Q8 [facility] Naproxen (Naprosyn) 500 mg PO BID PRN PRN Reason: Pain Last Admin: 03/24/17 11:55 Dose: 500 mg Ondansetron HCl (Zofran) 4 mg IV Q4-6HP PRN PRN Reason: Nausea And Vomiting Pantoprazole Sodium (Protonix) 40 mg PO QAMAC [facility] Last Admin: 03/24/17 08:18 Dose: 40 mg Sertraline HCl (Zoloft) 25 mg PO DAILY [facility] Last Admin: 03/24/17 09:03 Dose: 25 mg Sodium Chloride (Saline Flush) 10 ml IV Q8 [facility] Last Admin: 03/24/17 14:19 Dose: 10 ml Result Diagarams 03/23/17 04:00 03/23/17 04:00 Abnormal Labs 03/23/17 03/23/17 03/22/17 04:00 04:00 08:23 WBC 22.5 H MCV 78.9 L MCH 24.7 L RDW 17.5 H MPV 11.3 H Lymph % (Auto) 5.4 L [place] % (Auto) 20.9 H Eos % (Auto) 8.3 H Gran # 14.7 H Lymph # (Auto) 1.2 L [place] # (Auto) 4.7 H Eos # (Auto) 1.9 H Anion Gap 18.0 H Calcium Phosphorus 2.6 L AST Lactate Dehydrogenase 328 H Total Protein 5.7 L Albumin 3.1 L Vancomycin Trough 23.0 H* 03/22/17 03/22/17 03:40 03:40 WBC 22.3 H MCV 79.1 L MCH 25.3 L RDW 17.9 H MPV 11.4 H Lymph % (Auto) 3.5 L [place] % (Auto) 17.4 H Eos % (Auto) 8.4 H Gran # 15.7 H Lymph # (Auto) 0.8 L [place] # (Auto) 3.9 H Eos # (Auto) 1.9 H Anion Gap Calcium 8.3 L Phosphorus AST 55 H Lactate Dehydrogenase 318 H Total Protein 5.6 L Albumin 3.1 L Vancomycin Trough Notified by nursing that patient is feeling much better and now patient and family are questioning whether he should really be comfort measures only. Patient requests restarting many of his chronic medications. I have not had time to fully review the chart, but family and patient would like to resume antibiotics and recheck labs and then rediscuss goals of care tomorrow at 10 AM. We'll restart vancomycin, aztreonam, Flagyl and doxycycline.
[2017-03-24] MEDS ORDERED: VANCOMYCIN 500 MG in 0.9 % SODIUM CHLORIDE 100 ML IV ONE (18:30)
[2017-03-24] MEDS ORDERED: DEXTROSE 5% IV ONE (19:15)
[2017-03-24] MEDS ORDERED: WATER IV ONE (19:15)
[2017-03-24] MEDS ORDERED: VANCOMYCIN IV ONE (19:15)
[2017-03-24] MEDS ORDERED: VANCOMYCIN 500 MG VIAL ONE (19:22)
[2017-03-24] MEDS: AZTREONAM 2 GM VIAL IV SCH (19:33)
[2017-03-24] MEDS: LORazepam 2 MG/ML VIAL IV PRN (21:08)
[2017-03-24] MEDS: DOXYCYCLINE HYCLATE 100 MG TABLET.ORL PO SCH (21:50)
[2017-03-24] MEDS: metroNIDAZOLE 500 MG TABLET PO SCH (21:50)
[2017-03-24] MEDS: VANCOMYCIN 1,000 MG in 0.9 % SODIUM CHLORIDE 250 ML IV SCH (22:36)
[2017-03-25] MEDS: 0.9 % SODIUM CHLORIDE 10 ML SYRINGE IV SCH ×3 (06:00→21:44)
[2017-03-25] MEDS: AZTREONAM 2 GM VIAL IV SCH (06:00)
[2017-03-25] MEDS: metroNIDAZOLE 500 MG TABLET PO SCH (06:00)
[2017-03-25 06:42] LABS: Basophils # (Auto) 0 K/mcL (0.0-0.3); Basophils % (Auto) 0.1 % (0.0-2.0); Eosinophils # (Auto) 2.1 K/mcL (0.0-0.7); Eosinophils % (Auto) 7.6 % (0.0-7.0); Granulocytes % (Auto) 69.9 % (38.0-78.0); Lymphocytes % (Auto) 3.7 % (15.5-49.0); Mean Cell Volume 78.5 fL (80.0-100.0); Mean Corpuscular HGB Conc 31.5 g/dL (31.0-36.0); Mean Corpuscular Hemoglobin 24.8 pg (26.0-34.0); Monocytes # (Auto) 5.3 K/mcL (0.1-0.9); Monocytes % (Auto) 18.7 % (1.0-12.0); Platelet Count 421 K/mcL (140-440); RBC 6.47 M/mcL (4.50-5.90); Red Cell Distribution Width 17.9 % (11.5-14.5)
[2017-03-25 06:58] LABS: ALT/SGPT 23 U/l (0-40); Albumin 3.4 gm/dL (3.2-5.2); Albumin/Globulin Ratio 1.2 (1.0-2.3); Alkaline Phosphatase 103 U/L (39-117); Blood Urea Nitrogen 22 mg/dl (8-23)
[2017-03-25] MEDS: PANTOPRAZOLE 40 MG TABLET PO SCH (07:07)
[2017-03-25] MEDS: DOCUSATE SODIUM 100 MG CAPSULE PO SCH ×2 (08:08→21:44)
[2017-03-25] MEDS: DOXYCYCLINE HYCLATE 100 MG TABLET.ORL PO SCH (08:09)
[2017-03-25] MEDS: SERTRALINE 50 MG TABLET PO SCH (08:10)
[2017-03-25] MEDS ORDERED: HYDROcodone/APAP 5/325MG TABLET PO PRN (11:52)
[2017-03-25] MEDS: FUROSEMIDE 40 MG TABLET PO SCH (15:49)
[2017-03-25] MEDS: POTASSIUM CHLORIDE 10 MEQ TABLET PO SCH (16:48)
--- NOTE | 2017-03-25 21:19 | Internal Med Progress Note ---
Medical - PN: Subj Patient information: Note initiated : 03/25/17 at 9:14 pm Service Date, if different from initiated Date: [] Patient: Matteo Devries 87 y/o M admitted on 03/18/17 for SOB, Fever, Flank Pain, Dark Urine/CHF, Pneumonia. Chief Complaint: [] Interval history: March 18, 2017: History of present illness: Mr. Devries is a 87 year old man who was admitted to [facility] earlier this week, and discharged on Monday. His daughter reports that he had positive troponins and congestive heart failure. He was diuresed. Since discharge she has continued to decline at home. He does live alone, but she says he was having difficulty getting out of bed, and having ongoing cough and chills. He has had worsening shortness of breath over the last couple of days. The patient reports he has more orthopnea than dyspnea with exertion. ER evaluation today showed markedly elevated white blood cell count, and chest x- ray consistent with both CHF and pneumonia. He also had a fever with a temperature of 100.4. Otherwise, he also says his vision has been a little blurry, he has an earache that comes and goes, he has had a mild sore throat. Has had some intermittent chest pain, which is mainly left-sided and sharp, but inconsistent. He denies having that pain today, but the ER note said that he had some discomfort on arrival that went away when they put on oxygen. He denies headaches or dizziness, palpitations, abdominal pain, nausea or vomiting or diarrhea or constipation. He does have some chronic urinary hesitancy issues. 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 He and his family are quite adamant that he wants to be a DNR, and does not want to be transferred to a center that has more specialty care available. Patient reports he had a flu shot this season, and a Pneumovax last year. March 19: Today, the patient says he feels a little better. He continues to be somewhat vague in his history. He denies fever chills, chest pain or significant shortness of breath, GI or symptoms. T-max was 99.9, but he has been afebrile since then. White blood cell count actually bumped up to 22,000 today. Chest x-ray continues to show widespread bilateral infiltrates. Patient continues to maintain O2 saturations on low flow oxygen. March 20: Last night, we started the patient on a Lasix drip to see if we could gently diurese him. He apparently had a very brisk response to this. Nurses note he really has not dropped to systolic blood pressure much below 100 with this. He is still negative only about 400 mL since admission. He says he does not feel quite as well today, although he did sit up in a chair today. He has trouble being very specific about his symptoms. He does not believe he is having fever or chills or chest pain. He thinks he might be a little short of breath, but denies significant cough. He denies significant GI or symptoms. He remains afebrile, and heart rate is controlled. Respiratory rate is quite variable. O2 saturation on 3 L is well above 90%. White blood cell count, however, is higher today. He is on Levaquin for gram-negative coverage, vancomycin for gram-positive coverage, and clindamycin was added for anaerobic coverage. Outside of these antibiotics, he is allergic to numerous antibiotics that we would normally use. Mar 21 patient seen examined, no acute overnight issues, pt was sitting by the bed side , in chair, eating breakfast, still has some shortness of breath but today feels better than yesterday patient wbc count is still high, will change levoflox to aztreonam, change clinda to flagyl (high risk of cdiff in clinda use). Pt will continue vanco. Patient remains afebrile. is Neg 1700ml today Mar 22 Patient seen examined, still has cough and shortness of breath stable, no acute overnight events WBC count is still high despite changing ABX to aztreonam flagyl and on vanco CXR today sdoes not show any infitlrate he notes some sorness in the abdomen no Nausea, vomiting or diarrhea reported plan to get CT chest abdomen pelvis to r/o occult source of infection. Patient remains negative on I/O, on lasix drip, which he is tolerating well. Mar 23 patient seen examined, no acute overnight issues, patient was lying in bed comfortably, but is very tired and fatigued, feels weak denies any chest pain or sob, he is negative 2339 since admission, continue gentle hydration continue with antibiotics, doxy added for atypical coverage, wbc stil lhigh, etiology? atypical pna vs chf appreciate Puml consult, will complete 7-10 days of pna treatment and then stop the antibiotics and see hwo the patient progresses. Chest CT abdo pelvis not showing any other source besides likely the lung Mar 24 Patient seen examined, no acute overnight events reported Last evening I was called to the patients room to discuss goals of treatment and patient and family expressed their desire for Comfort care for patient, therefor patient has now been placed on comfort care he is comfortable and does not endorse any issues to me, he did mention some hand pain to the nurse wanting some anti inflammatory medications alleve advised The patient is on dilaudid and lorazepam for palliative purposes. Off IV antibiotics, no further labs or invasive testing is being performed. Plan for d/c to snf with palliative care vs home with hospice depending on family wishes. Mar 25 Last evening pt's family requested re-evaluation of comfort care. While waiting , they requested we resume antibiotics, which we did. I reviewed pt case--with multiple admissions for CHF he has poor prognosis and would be hospice candidate if he desired. Despite broad-spectrum antibiotics, his leukocytosis has not improved. Today it is 28K up from 22K for last several days. Dtrs, Alejandro and Bj, were at bedside for discussion. 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 Agreeable to DC of Abx as have not helped and are putting him at risk of C diff. Will resume home Lasix as he is having chest fullness today. If he worsens, will not escalate care and transition to strict comfort measures with morphine and Ativan. He has some R thumb/wrist pain; will try hydrocodone and ice PRN. Pt would like to keep his Leigh as it is bothersome for him to get OOB to void. ROS: no fever or sob - Constitutional Vitals: Vital Signs Temp Pulse Resp BP Pulse Ox 97.4 F 77 14 116/76 95 03/25/17 20:00 03/25/17 20:00 03/25/17 20:00 03/25/17 20:00 03/25/17 20:00 Period Temp Pulse Resp BP Sys/Lmeon Pulse Ox Last 24 Hr 97.3 F-98.2 F 70-77 14-20 116-152/76-94 92-96 Intake and Output 03/25/17 03/25/17 03/25/17 05:59 13:59 21:59 Intake Total 300 / 300 360 / 360 400 / 400 Output Total 175 / 175 275 / 275 Balance 125 / 125 360 / 360 125 / 125 Intake & Output: Intake & Output 03/25/17 03/25/17 03/25/17 05:59 13:59 21:59 Intake Total 300 / 300 360 / 360 400 / 400 Output Total 175 / 175 275 / 275 Balance 125 / 125 360 / 360 125 / 125 Intake: Oral 300 / 300 360 / 360 400 / 400 Output: Urine Catheter Amount 175 / 175 275 / 275 Other: Meal Breakfast Percent of Meal Consumed 100% Exam: Constitutional; Afebrile, cooperative, alert, not in distress. Eyes- No icterus, No periorbital swelling Ears- Ext ear normal, hearing aids Neck- Midline trachea, supple Respiratory: Air Entry equal on both sides, No crackles or wheezing, no rhonchi. CV- Rate rhythm regular, S1,S2 heard, no gallop, no rub. No peripheral edema. Abdomen- Soft nontender abdomen, no organomegaly, no tenderness, no guarding or rigidity, NRO- AOx3, moving all extremities, no gross focal deficit noted. Medical - PN: Obj Da - Labs CBC & Chem 7: 03/25/17 04:45 03/25/17 04:45 Labs: Abnormal Lab Results 03/25/17 03/25/17 03/23/17 04:45 04:45 04:00 WBC 28.4 H RBC 6.47 H MCV 78.5 L MCH 24.8 L RDW 17.9 H MPV 11.1 H Lymph % (Auto) 3.7 L [place] % (Auto) 18.7 H Eos % (Auto) 7.6 H Gran # 19.8 H Lymph # (Auto) 1.0 L [place] # (Auto) 5.3 H Eos # (Auto) 2.1 H Anion Gap 19.0 H 18.0 H Phosphorus 2.6 L Lactate Dehydrogenase 328 H Total Protein 5.7 L Albumin 3.1 L 03/23/17 04:00 WBC 22.5 H RBC MCV 78.9 L MCH 24.7 L RDW 17.5 H MPV 11.3 H Lymph % (Auto) 5.4 L [place] % (Auto) 20.9 H Eos % (Auto) 8.3 H Gran # 14.7 H Lymph # (Auto) 1.2 L [place] # (Auto) 4.7 H Eos # (Auto) 1.9 H Anion Gap Phosphorus Lactate Dehydrogenase Total Protein Albumin Meds: Medications Acetaminophen (Tylenol) 650 mg PO Q4-6HP PRN PRN Reason: PAIN/FEVER > 101 Hydrocodone Bitart/Acetaminophen ([place] 5/325mg) 1 tab PO Q6HP PRN PRN Reason: PAIN LEVEL 3-6 Last Admin: 03/25/17 12:13 Dose: 1 tab Albuterol Sulfate (Ventolin) 2.5 mg NEB Q4HRT PRN PRN Reason: Shortness Of Breath Or Wheezing Docusate Sodium (Colace) 100 mg PO BID [facility] Last Admin: 03/25/17 08:08 Dose: Not Given Furosemide (Lasix) 20 mg PO BIDD [facility] Last Admin: 03/25/17 15:49 Dose: 20 mg Glucose Oxid/Lactoperoxid/Muramidas (Biotene) 1 each TOPICAL PRN PRN PRN Reason: Dry Mouth Hydromorphone HCl (Dilaudid) 0 mg IV Q2HP PRN PRN Reason: Pain Lorazepam (Ativan) 0 mg IV Q1HP PRN; Protocol PRN Reason: ANXIETY/SEDATION Last Admin: 03/24/17 21:08 Dose: 1 mg Magnesium Hydroxide (Milk Of Magnesia) 30 ml PO DAILYP PRN PRN Reason: Constipation Naproxen (Naprosyn) 500 mg PO BID PRN PRN Reason: Pain Last Admin: 03/24/17 11:55 Dose: 500 mg Ondansetron HCl (Zofran) 4 mg IV Q4-6HP PRN PRN Reason: Nausea And Vomiting Pantoprazole Sodium (Protonix) 40 mg PO QAMAC [facility] Last Admin: 03/25/17 07:07 Dose: 40 mg Potassium Chloride (Kdur) 10 meq PO BIDCC [facility] Last Admin: 03/25/17 16:48 Dose: 10 meq Sertraline HCl (Zoloft) 25 mg PO DAILY [facility] Last Admin: 03/25/17 08:10 Dose: 25 mg Sodium Chloride (Saline Flush) 10 ml IV Q8 [facility] Last Admin: 03/25/17 14:00 Dose: 10 ml Medical - PN: A/P - Time Spent With Patient Total time spent is greater than 50% in coordination of care (as documented) at patient's floor/unit and/or counseling patient: Greater than 35 minutes - Narrative A/P Narrative: A/P Acute hypoxic resp failure: likely combo of atypical PNA and CHF exac. Pulm consulted 03/22 with no other intervention recommended.Did not improve on vanc, aztreonam, flagyl and doxy. Suspect majority of improvement in resp status was d /t diuresis. D/w pt and family and will DC abx as not helping infection and are putting him at risk of C diff. He would likely not survive a severe case of C diff. Acute CHF exacerbation systolic and diastoilc : s/p IV lasix drip, did not need dobutamine support, lvef was 25-30 with moderate pulm htn on echo done [facility] month. Poor prognosis with recurrent CHF exacerbations; would be a hospice candidate. Pt/family understand but not quite ready for hospice. Agreeable to restarting oral Lasix and coreg. Consider IV Lasix if needed, but do not otherwise escalate care. Check BMP in AM Coronary artery disease: Not a candidate for interventions as per family ( at [facility] told them, they declined transfer to higher center) , on beta paul , dual antiplatelet agents and statin. will resume lisinopril once bp allows. COPD: stable, no wheezing on exam, on albuterol q4hrs Hypothyroidism continue levothyroxine. Depression: on zoloft continue same, DNR DNI status. 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 General diet per pt/family request. Medical - PN: Qual - VTE Deep Vein Thrombosis/Pulmonary Embolism Present on Admission: Yes
[2017-03-25] MEDS: LORazepam 2 MG/ML VIAL IV PRN (21:44)
[2017-03-26] MEDS: PANTOPRAZOLE 40 MG TABLET PO SCH (07:27)
[2017-03-26] MEDS: 0.9 % SODIUM CHLORIDE 10 ML SYRINGE IV SCH ×3 (07:27→21:49)
[2017-03-26 08:32] LABS: Blood Urea Nitrogen 17 mg/dl (8-23)
[2017-03-26 08:39] LABS: Basophils # (Auto) 0 K/mcL (0.0-0.3); Basophils % (Auto) 0.1 % (0.0-2.0); Eosinophils % (Auto) 8.2 % (0.0-7.0); Granulocytes % (Auto) 65.3 % (38.0-78.0); Lymphocytes # (Auto) 1.4 K/mcL (1.5-4.8); Lymphocytes % (Auto) 5.5 % (15.5-49.0); Mean Cell Volume 79.2 fL (80.0-100.0); Mean Corpuscular HGB Conc 31.7 g/dL (31.0-36.0); Mean Corpuscular Hemoglobin 25.1 pg (26.0-34.0); Monocytes # (Auto) 5.2 K/mcL (0.1-0.9); Monocytes % (Auto) 20.9 % (1.0-12.0); Platelet Count 476 K/mcL (140-440); Red Cell Distribution Width 17.9 % (11.5-14.5)
[2017-03-26] MEDS: POTASSIUM CHLORIDE 10 MEQ TABLET PO SCH ×2 (08:55→17:02)
[2017-03-26] MEDS: FUROSEMIDE 40 MG TABLET PO SCH ×2 (08:55→16:06)
[2017-03-26] MEDS: CARVEDILOL 6.25 MG TABLET PO SCH ×2 (08:55→17:02)
[2017-03-26] MEDS: SERTRALINE 50 MG TABLET PO SCH (08:55)
[2017-03-26] MEDS: DOCUSATE SODIUM 100 MG CAPSULE PO SCH ×2 (08:55→21:50)
[2017-03-26] MEDS ORDERED: FUROSEMIDE 40 MG TABLET PO SCH (09:00)
--- NOTE | 2017-03-26 12:07 | Internal Med Progress Note ---
Medical - PN: Subj Patient information: Note initiated : 03/26/17 at 12:04 pm Service Date, if different from initiated Date: [] Patient: Matteo Devries 87 y/o M admitted on 03/18/17 for SOB, Fever, Flank Pain, Dark Urine/CHF, Pneumonia. Chief Complaint: [] Interval history: March 18, 2017: History of present illness: Mr. Devries is a 87 year old man who was admitted to Health system earlier this week, and discharged on Monday. His daughter reports that he had positive troponins and congestive heart failure. He was diuresed. Since discharge she has continued to decline at home. He does live alone, but she says he was having difficulty getting out of bed, and having ongoing cough and chills. He has had worsening shortness of breath over the last couple of days. The patient reports he has more orthopnea than dyspnea with exertion. ER evaluation today showed markedly elevated white blood cell count, and chest x- ray consistent with both CHF and pneumonia. He also had a fever with a temperature of 100.4. Otherwise, he also says his vision has been a little blurry, he has an earache that comes and goes, he has had a mild sore throat. Has had some intermittent chest pain, which is mainly left-sided and sharp, but inconsistent. He denies having that pain today, but the ER note said that he had some discomfort on arrival that went away when they put on oxygen. He denies headaches or dizziness, palpitations, abdominal pain, nausea or vomiting or diarrhea or constipation. He does have some chronic urinary hesitancy issues. 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 He and his family are quite adamant that he wants to be a DNR, and does not want to be transferred to a center that has more specialty care available. Patient reports he had a flu shot this season, and a Pneumovax last year. March 19: Today, the patient says he feels a little better. He continues to be somewhat vague in his history. He denies fever chills, chest pain or significant shortness of breath, GI or symptoms. T-max was 99.9, but he has been afebrile since then. White blood cell count actually bumped up to 22,000 today. Chest x-ray continues to show widespread bilateral infiltrates. Patient continues to maintain O2 saturations on low flow oxygen. March 20: Last night, we started the patient on a Lasix drip to see if we could gently diurese him. He apparently had a very brisk response to this. Nurses note he really has not dropped to systolic blood pressure much below 100 with this. He is still negative only about 400 mL since admission. He says he does not feel quite as well today, although he did sit up in a chair today. He has trouble being very specific about his symptoms. He does not believe he is having fever or chills or chest pain. He thinks he might be a little short of breath, but denies significant cough. He denies significant GI or symptoms. He remains afebrile, and heart rate is controlled. Respiratory rate is quite variable. O2 saturation on 3 L is well above 90%. White blood cell count, however, is higher today. He is on Levaquin for gram-negative coverage, vancomycin for gram-positive coverage, and clindamycin was added for anaerobic coverage. Outside of these antibiotics, he is allergic to numerous antibiotics that we would normally use. Mar 21 patient seen examined, no acute overnight issues, pt was sitting by the bed side , in chair, eating breakfast, still has some shortness of breath but today feels better than yesterday patient wbc count is still high, will change levoflox to aztreonam, change clinda to flagyl (high risk of cdiff in clinda use). Pt will continue vanco. Patient remains afebrile. is Neg 1700ml today Mar 22 Patient seen examined, still has cough and shortness of breath stable, no acute overnight events WBC count is still high despite changing ABX to aztreonam flagyl and on vanco CXR today sdoes not show any infitlrate he notes some sorness in the abdomen no Nausea, vomiting or diarrhea reported plan to get CT chest abdomen pelvis to r/o occult source of infection. Patient remains negative on I/O, on lasix drip, which he is tolerating well. Mar 23 patient seen examined, no acute overnight issues, patient was lying in bed comfortably, but is very tired and fatigued, feels weak denies any chest pain or sob, he is negative 2339 since admission, continue gentle hydration continue with antibiotics, doxy added for atypical coverage, wbc stil lhigh, etiology? atypical pna vs chf appreciate Puml consult, will complete 7-10 days of pna treatment and then stop the antibiotics and see hwo the patient progresses. Chest CT abdo pelvis not showing any other source besides likely the lung Mar 24 Patient seen examined, no acute overnight events reported Last evening I was called to the patients room to discuss goals of treatment and patient and family expressed their desire for Comfort care for patient, therefor patient has now been placed on comfort care he is comfortable and does not endorse any issues to me, he did mention some hand pain to the nurse wanting some anti inflammatory medications alleve advised The patient is on dilaudid and lorazepam for palliative purposes. Off IV antibiotics, no further labs or invasive testing is being performed. Plan for d/c to snf with palliative care vs home with hospice depending on family wishes. Mar 25 Last evening pt's family requested re-evaluation of comfort care. While waiting , they requested we resume antibiotics, which we did. I reviewed pt case--with multiple admissions for CHF he has poor prognosis and would be hospice candidate if he desired. Despite broad-spectrum antibiotics, his leukocytosis has not improved. Today it is 28K up from 22K for last several days. Dtrs, Alejandro and Bj, were at bedside for discussion. 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 Agreeable to DC of Abx as have not helped and are putting him at risk of C diff. Will resume home Lasix as he is having chest fullness today. If he worsens, will not escalate care and transition to strict comfort measures with morphine and Ativan. He has some R thumb/wrist pain; will try hydrocodone and ice PRN. Pt would like to keep his Leigh as it is bothersome for him to get OOB to void. March 26: Right wrist pain has resolved after 1 dose of hydrocodone. Chest pressure improved after restarting Lasix. WBCs are down to 24K. ROS: no fever or sob - Constitutional Vitals: Vital Signs Temp Pulse Resp BP Pulse Ox 97.9 F 75 20 121/80 94 03/26/17 07:41 03/26/17 07:41 03/26/17 07:41 03/26/17 07:41 03/26/17 07:41 Period Temp Pulse Resp BP Sys/Lemon Pulse Ox Last 24 Hr 97.4 F-98.2 F 70-77 14-20 116-139/76-81 92-96 Intake and Output 03/25/17 03/26/17 03/26/17 21:59 05:59 13:59 Intake Total 400 / 400 50 / 50 220 / 220 Output Total 275 / 275 250 / 250 Balance 125 / 125 -200 / -200 220 / 220 Intake & Output: Intake & Output 03/25/17 03/26/17 03/26/17 21:59 05:59 13:59 Intake Total 400 / 400 50 / 50 220 / 220 Output Total 275 / 275 250 / 250 Balance 125 / 125 -200 / -200 220 / 220 Intake: Oral 400 / 400 50 / 50 220 / 220 Output: Urine Catheter Amount 275 / 275 250 / 250 Other: Meal Dinner Breakfast Percent of Meal Consumed 100% 75% Exam: Constitutional; Afebrile, cooperative, alert, not in distress. Eyes- No icterus, No periorbital swelling Ears- Ext ear normal, hearing aids Neck- Midline trachea, supple Respiratory: Air Entry equal on both sides, No crackles or wheezing, no rhonchi. CV- Rate rhythm regular, S1,S2 heard, no gallop, no rub. No peripheral edema. Abdomen- Soft nontender abdomen, no organomegaly, no tenderness, no guarding or rigidity, NRO- AOx3, moving all extremities, no gross focal deficit noted. Medical - PN: Obj Da - Labs CBC & Chem 7: 03/26/17 06:40 03/26/17 06:40 Labs: Abnormal Lab Results 03/26/17 03/25/17 03/25/17 06:40 04:45 04:45 WBC 24.7 H 28.4 H RBC 6.40 H 6.47 H MCV 79.2 L 78.5 L MCH 25.1 L 24.8 L RDW 17.9 H 17.9 H Plt Count 476 H MPV 10.7 H 11.1 H Lymph % (Auto) 5.5 L 3.7 L Grundy % (Auto) 20.9 H 18.7 H Eos % (Auto) 8.2 H 7.6 H Gran # 16.1 H 19.8 H Lymph # (Auto) 1.4 L 1.0 L Grundy # (Auto) 5.2 H 5.3 H Eos # (Auto) 2.0 H 2.1 H Anion Gap 19.0 H Meds: Medications Acetaminophen (Tylenol) 650 mg PO Q4-6HP PRN PRN Reason: PAIN/FEVER > 101 Hydrocodone Bitart/Acetaminophen ([place] 5/325mg) 1 tab PO Q6HP PRN PRN Reason: PAIN LEVEL 3-6 Last Admin: 03/25/17 12:13 Dose: 1 tab Albuterol Sulfate (Ventolin) 2.5 mg NEB Q4HRT PRN PRN Reason: Shortness Of Breath Or Wheezing Carvedilol (Coreg) 6.25 mg PO BIDCC [facility] Last Admin: 03/26/17 08:55 Dose: 6.25 mg Docusate Sodium (Colace) 100 mg PO BID [facility] Last Admin: 03/26/17 08:55 Dose: 100 mg Furosemide (Lasix) 20 mg PO BIDD [facility] Last Admin: 03/26/17 08:55 Dose: 20 mg Glucose Oxid/Lactoperoxid/Muramidas (Biotene) 1 each TOPICAL PRN PRN PRN Reason: Dry Mouth Hydromorphone HCl (Dilaudid) 0 mg IV Q2HP PRN PRN Reason: Pain Lorazepam (Ativan) 0 mg IV Q1HP PRN; Protocol PRN Reason: ANXIETY/SEDATION Last Admin: 03/25/17 21:44 Dose: 1 mg Magnesium Hydroxide (Milk Of Magnesia) 30 ml PO DAILYP PRN PRN Reason: Constipation Naproxen (Naprosyn) 500 mg PO BID PRN PRN Reason: Pain Last Admin: 03/24/17 11:55 Dose: 500 mg Ondansetron HCl (Zofran) 4 mg IV Q4-6HP PRN PRN Reason: Nausea And Vomiting Pantoprazole Sodium (Protonix) 40 mg PO QAMAC [facility] Last Admin: 03/26/17 07:27 Dose: 40 mg Potassium Chloride (Kdur) 10 meq PO BIDCC [facility] Last Admin: 03/26/17 08:55 Dose: 10 meq Sertraline HCl (Zoloft) 25 mg PO DAILY [facility] Last Admin: 03/26/17 08:55 Dose: 25 mg Sodium Chloride (Saline Flush) 10 ml IV Q8 [facility] Last Admin: 03/26/17 07:27 Dose: 10 ml Medical - PN: A/P - Time Spent With Patient Total time spent is greater than 50% in coordination of care (as documented) at patient's floor/unit and/or counseling patient: - Narrative A/P Narrative: A/P Acute hypoxic resp failure: likely combo of atypical PNA and CHF exac. Pulm consulted 03/22 with no other intervention recommended.Did not improve on vanc, aztreonam, flagyl and doxy. Suspect majority of improvement in resp status was d /t diuresis. D/w pt and family and DC'd as not helping infection and are putting him at risk of C diff. He would likely not survive a severe case of C diff. Acute CHF exacerbation systolic and diastoilc : s/p IV lasix drip, did not need dobutamine support, lvef was 25-30 with moderate pulm htn on echo [facility]. Poor prognosis with recurrent CHF exacerbations; would be a hospice candidate. Pt/family understand but not quite ready for hospice. Agreeable to restarting oral Lasix and coreg. Consider IV Lasix if needed, but do not otherwise escalate care. Cont labs Coronary artery disease: Not a candidate for interventions as per family ( at [facility] told them, they declined transfer to higher center) , on beta paul , dual antiplatelet agents and statin. will resume lisinopril once bp allows. COPD: stable, no wheezing on exam, on albuterol q4hrs Hypothyroidism continue levothyroxine. Depression: on zoloft continue same, DNR DNI status. 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 PT/OT ordered General diet per pt/family request. Medical - PN: Qual - VTE Deep Vein Thrombosis/Pulmonary Embolism Present on Admission: Yes
[2017-03-26] MEDS ORDERED: CALCIUM CARBONATE 500 MG TAB.CHEW CHEWED PRN (12:15)
[2017-03-26] MEDS: LORazepam 2 MG/ML VIAL IV PRN (21:50)
[2017-03-27 06:33] LABS: Blood Urea Nitrogen 14 mg/dl (8-23)
[2017-03-27 07:17] LABS: Basophils # (Auto) 0.1 K/mcL (0.0-0.3); Basophils % (Auto) 0.2 % (0.0-2.0); Eosinophils # (Auto) 2.1 K/mcL (0.0-0.7); Eosinophils % (Auto) 8.2 % (0.0-7.0); Granulocytes % (Auto) 64.7 % (38.0-78.0); Lymphocytes # (Auto) 1.6 K/mcL (1.5-4.8); Lymphocytes % (Auto) 6.1 % (15.5-49.0); Mean Cell Volume 78.8 fL (80.0-100.0); Mean Corpuscular HGB Conc 31.5 g/dL (31.0-36.0); Mean Corpuscular Hemoglobin 24.8 pg (26.0-34.0); Monocytes # (Auto) 5.4 K/mcL (0.1-0.9); Monocytes % (Auto) 20.8 % (1.0-12.0); Platelet Count 496 K/mcL (140-440); RBC 6.59 M/mcL (4.50-5.90); Red Cell Distribution Width 18.1 % (11.5-14.5)
[2017-03-27] MEDS: FUROSEMIDE 40 MG TABLET PO SCH (07:39)
[2017-03-27] MEDS: CARVEDILOL 6.25 MG TABLET PO SCH (07:40)
[2017-03-27] MEDS: PANTOPRAZOLE 40 MG TABLET PO SCH (07:40)
[2017-03-27] MEDS: 0.9 % SODIUM CHLORIDE 10 ML SYRINGE IV SCH (07:41)
[2017-03-27] MEDS: POTASSIUM CHLORIDE 10 MEQ TABLET PO SCH (07:41)
[2017-03-27] MEDS: SERTRALINE 50 MG TABLET PO SCH (12:13)
[2017-03-27] MEDS: DOCUSATE SODIUM 100 MG CAPSULE PO SCH (12:15)
--- NOTE | 2017-03-27 14:06 | Discharge Summary ---
Medical - DS: Prov Patient information: Note initiated : 03/27/17 at 1:56 pm Service Date, if different from initiated Date: [] Patient: Matteo Devries 87 y/o M admitted on 03/18/17 for SOB, Fever, Flank Pain, Dark Urine/CHF, Pneumonia. Chief Complaint: [] Date of admission: 03/18/17 21:22 Discharge date: 03/27/17 Primary care physician: Kiana Multani Admitting clinician: Deana Pompa Consults: 03/18/17 16:05 Consult to Physician [CONS] Stat Comment: Consulting Provider: Deana Pompa Reason For Exam: Physician to Consult 03/26/17 13:41 Consult to Physician [CONS] Routine Comment: Consulting Provider: [facility] Reason For Exam: Physician to Consult Attending physician on discharge: Deana Pompa Medical - DS: Meds - Discharge Medications Prescriptions: HYDROcodone/APAP 5/325MG [[place] 5/325Mg] 1 tab PO Q6HP PRN #20 tab PRN Reason: Pain Level 3-6 LORazepam [Lorazepam Intensol] 1 mg PO Q2HP PRN #120 ml PRN Reason: Anxiety morphine SULFATE [Morphine Sulfate] 2.5 mg PO Q2HP PRN #120 ml PRN Reason: Chest Pain Ondansetron HCl [Zofran ODT] 4 mg SL Q4HP PRN #30 tab PRN Reason: Nausea And Vomiting Active and Home Medications: Discharge medications: Morphine 10 mg/mL, 2.5-5 mg p.o. every 2 hours as needed chest pain or respiratory distress. May cause hallucinations. Hydrocodone/acetaminophen 5/325 one every 6 hours as needed pain Lorazepam solution 2 mg/mL. 1-2 mg every 4 hours as needed anxiety or insomnia Tylenol 650 mg every 4 hours as needed mild pain Tums 500 mg every 4 hours as needed indigestion Carvedilol 6.25 mg p.o. twice daily Docusate sodium 100 mg p.o. twice daily Lasix 20 mg p.o. twice daily for heart failure Milk of magnesia 30 mL p.o. daily as needed constipation Zofran 4 mg sublingual every 4 hours as needed nausea Protonix 40 mg p.o. daily Potassium chloride 10 mEq p.o. twice daily Sertraline 25 mg p.o. daily Aspirin 81 mg daily Vitamin D 2000 units daily Plavix 75 mg p.o. daily next line Combivent inhaler 2 puffs every 4 hours as needed Levothyroxine 80 mcg p.o. daily Nortriptyline 25 mg p.o. nightly as needed for sleep or neuropathy pain. Oxygen 2-3 L, as needed, to maintain O's 2 saturations above 90%, or for air hunger appear Previous home Medications Acetaminophen [Acetaminophen Extra Strength] 500 mg PO QHS 03/18/17 [History Confirmed 03/18/17 Last Taken Unknown] Ascorbic Acid [Vitamin C] 500 mg PO DAILY 03/18/17 [History Confirmed 03/18/17 Last Taken Unknown] Aspirin [Leatha Chewable Aspirin] 81 mg PO DAILY 03/18/17 [History Confirmed 12/25 Last Taken Unknown] Carvedilol [Coreg] 25 mg PO BID 03/18/17 [History Confirmed 03/18/17 Last Taken Unknown] Cholecalciferol (Vitamin D3) [Vitamin D] 2,000 unit PO DAILY 03/18/17 [History Confirmed 03/18/17 Last Taken Unknown] Clopidogrel [Plavix] 75 mg PO DAILY 03/18/17 [History Confirmed 03/18/17 Last Taken Unknown] Docusate Sodium [Colace] 100 mg PO BID 03/18/17 [History Confirmed 03/18/17 Last Taken Unknown] Furosemide [Lasix] 40 mg PO DAILY 03/18/17 [History Confirmed 03/18/17 Last Taken Unknown] Ipratropium/Albuterol Sulfate [Combivent] 2 puff INH Q4HP PRN 03/18/17 [History Confirmed 03/18/17 Last Taken Unknown] LORazepam [Ativan] 0.5 mg PO PRN PRN 03/18/17 [History Confirmed 03/18/17 Last Taken Unknown] Levothyroxine Sodium [Levoxyl] 88 mcg PO DAILY 03/18/17 [History Confirmed 03/18 Last Taken Unknown] Lisinopril [Zestril] 5 mg PO DAILY 03/18/17 [History Confirmed 03/18/17 Last Taken Unknown] Multivitamin,Ther and Minerals [Multivitamins with Minerals Hp] 1 each PO DAILY 03/18/17 [History Confirmed 03/18/17 Last Taken Unknown] Nortriptyline HCl [Pamelor] 25 mg PO HS 03/18/17 [History Confirmed 03/18/17 Last Taken Unknown] Pantoprazole Sodium [Protonix] 40 mg PO DAILY 03/18/17 [History Confirmed Last Taken Unknown] Potassium Chloride [Klor-Con Sprinkle] 10 meq PO BID 03/18/17 [History Confirmed 03/18/17 Last Taken Unknown] Sertraline [Zoloft] 25 mg PO DAILY 03/18/17 [History Confirmed 03/18/17 Last Taken Unknown] Simvastatin [Zocor] 10 mg PO HS 03/18/17 [History Confirmed 03/18/17 Last Taken Unknown] Ubidecarenone/Vit E Acetate [Co Q-10 100 mg Softgel] 3 each PO DAILY 03/18/17 [ History Confirmed 03/18/17 Last Taken Unknown] Medical - DS: Hosp Hospital course: Mr. Devries is a 87 year old M March 18, 2017: History of present illness: Mr. Devries is a 87 year old man who was admitted to [facility] earlier this week, and discharged on Monday. His daughter reports that he had positive troponins and congestive heart failure. He was diuresed. Since discharge she has continued to decline at home. He does live alone, but she says he was having difficulty getting out of bed, and having ongoing cough and chills. He has had worsening shortness of breath over the last couple of days. The patient reports he has more orthopnea than dyspnea with exertion. ER evaluation today showed markedly elevated white blood cell count, and chest x- ray consistent with both CHF and pneumonia. He also had a fever with a temperature of 100.4. Otherwise, he also says his vision has been a little blurry, he has an earache that comes and goes, he has had a mild sore throat. Has had some intermittent chest pain, which is mainly left-sided and sharp, but inconsistent. He denies having that pain today, but the ER note said that he had some discomfort on arrival that went away when they put on oxygen. He denies headaches or dizziness, palpitations, abdominal pain, nausea or vomiting or diarrhea or constipation. He does have some chronic urinary hesitancy issues. He was advised to transfer to another hospital that had cardiology available, but the patient and his daughter know that the theatre director at [facility] that he is no longer a candidate for any procedures, and can only be medically managed. He and his family are quite adamant that he wants to be a DNR, and does not want to be transferred to a center that has more specialty care available. Patient reports he had a flu shot this season, and a Pneumovax last year. March 19: Today, the patient says he feels a little better. He continues to be somewhat vague in his history. He denies fever chills, chest pain or significant shortness of breath, GI or symptoms. T-max was 99.9, but he has been afebrile since then. White blood cell count actually bumped up to 22,000 today. Chest x-ray continues to show widespread bilateral infiltrates. Patient continues to maintain O2 saturations on low flow oxygen. March 20: Last night, we started the patient on a Lasix drip to see if we could gently diurese him. He apparently had a very brisk response to this. Nurses note he really has not dropped to systolic blood pressure much below 100 with this. He is still negative only about 400 mL since admission. He says he does not feel quite as well today, although he did sit up in a chair today. He has trouble being very specific about his symptoms. He does not believe he is having fever or chills or chest pain. He thinks he might be a little short of breath, but denies significant cough. He denies significant GI or symptoms. He remains afebrile, and heart rate is controlled. Respiratory rate is quite variable. O2 saturation on 3 L is well above 90%. White blood cell count, however, is higher today. He is on Levaquin for gram-negative coverage, vancomycin for gram-positive coverage, and clindamycin was added for anaerobic coverage. Outside of these antibiotics, he is allergic to numerous antibiotics that we would normally use. .......................... March 27: Hospital course: -This patient was admitted with tentative diagnosis of both CHF and bilateral pneumonia. He was treated with antibiotics, He has numerous antibiotic intolerances, which made finding good antibiotic coverage a challenge. -He was started on a Lasix drip to try to achieve a gentle diuresis. He did not seem to require this for very long. He did achieve a net diuresis of -2600 mL by March 24, but has been holding on a more fluid since then, and has an overall negative balance of 1230 mL. Yesterday he had some chest pressure, which was thought to be CHF symptoms, so Lasix was resumed. -His white blood cell count remained quite elevated throughout his stay, for uncertain reasons. He did have a pulmonary consultation as well. CT of the abdomen chest and pelvis did not show any obvious sources for infection other than what appeared to be bilateral pneumonia. -The patient has become tired of being stuck in the hospital, and request withdrawal of aggressive care. Initially his family seem to object to this, but as of yesterday they have agreed that with the patient's very poor prognosis , they will not pressure him to continue aggressive care. He met with case management today, and he and his family have agreed to have him return home to be admitted to home hospice. -Today, he says he would prefer to have the Leigh catheter taken out, and thinks he can urinate without it. Otherwise, he denies fever or chills today. He says he still has mild intermittent chest discomfort and shortness of breath, but does tend to wax and wane. He denies palpitations, abdominal pain, nausea or vomiting. He believes his stool was loose today. On exam, he is a pleasant elderly man in no acute distress. He was able to transfer from the bedside commode to the bed with 1-2 person assist. Neck is supple without obvious JVD. Cardiac exam shows regular rate and rhythm. Lungs are fairly clear. Breath sounds are just a bit coarse. No definite wheezing or crackles are noted. Abdomen is soft and nontender. Extremities: Show no significant edema. Neurologic exam: Is grossly nonfocal. A/P Narrative: #1. Acute hypoxic resp failure: likely combo of atypical PNA and CHF exac. Pulm consulted 03/22 with no other intervention recommended.Did not improve on vanc, aztreonam, flagyl and doxy. Suspect majority of improvement in resp status was d/t diuresis. D/w pt and family and DC'd as not helping infection and are putting him at risk of C diff. He would likely not survive a severe case of C diff. #2. Acute CHF exacerbation systolic and diastoilc : s/p IV lasix drip, did not need dobutamine support, lvef was 25-30 with moderate pulm htn on echo done at [facility] this month. Poor prognosis with recurrent CHF exacerbations; would be a hospice candidate. Pt/family understand, and now seem agreeable to home hospice. The patient reports he would much rather be at home. - Agreeable to restarting oral Lasix and coreg. - #3. Coronary artery disease: Not a candidate for interventions as per family ( Dr at [facility] told them, they declined transfer to [facility]) , on beta paul, dual antiplatelet agents .. #4. COPD: stable, no wheezing on exam, resume Combivent as needed. 5. Hypothyroidism continue levothyroxine. #6. Depression: on zoloft continue same, #7. DNR DNI status. General diet per pt/family request. Although a low sodium diet would be less likely to aggravate his CHF symptoms. Discharge diagnosis: Severe ischemic cardiomyopathy, CHF exacerbation. Bilateral pneumonia. - Time Spent with Patient Total time spent providing and/or coordinating discharge services: Greater than 30 minutes Medical - DS: Exam - Constitutional Vitals: Vital Signs Temp Pulse Pulse Resp BP Pulse Ox 03/27/17 07:45 94 03/27/17 07:18 70 12 94 03/27/17 06:57 97.4 F 70 18 152/86 97 03/26/17 19:49 98.5 F 70 20 111/72 94 Intake and Output 03/26/17 03/27/17 03/27/17 21:59 05:59 13:59 Intake Total 400 / 400 690 / 690 Output Total 250 / 250 500 / 500 Balance 150 / 150 190 / 190 Intake: Oral 400 / 400 690 / 690 Output: Urine Catheter Amount 250 / 250 500 / 500 Other: # Bowel Movements 1 Medical - DS: Data Labs on day of discharge: Labs from last 24 hours 03/27/17 03/27/17 04:05 04:05 WBC 25.8 H RBC 6.59 H Hgb 16.4 Hct 52.0 MCV 78.8 L MCH 24.8 L MCHC 31.5 RDW 18.1 H Plt Count 496 H MPV 10.6 H Gran % 64.7 Lymph % (Auto) 6.1 L [place] % (Auto) 20.8 H Eos % (Auto) 8.2 H Baso % (Auto) 0.2 Gran # 16.7 H Lymph # (Auto) 1.6 [place] # (Auto) 5.4 H Eos # (Auto) 2.1 H Baso # (Auto) 0.1 Sodium 144 Potassium 4.0 Chloride 105 Carbon Dioxide 22 Anion Gap 17.0 H BUN 14 Creatinine 0.8 GFR Calculation 80 Glucose 92 Calcium 9.1 March 22: CT of the chest, abdomen, pelvis: IMPRESSION: 1. Large mixed alveolar/interstitial airspace disease throughout the upper lobes and superior segment of both lower lobes and central right middle lobe. The distribution of airspace disease is somewhat atypical for edema from CHF. This may be atypically distributed edema or there may be a secondary process such as infection, aspiration or ARDS. Small bilateral pleural effusions noted. 2. Moderate pancreatic atrophy progressing from the previous study. 3. Mild nonobstructing stones in the calyces of both kidneys - stable. There is no evidence of obstructing stone or hydronephrosis. Chest x-ray: IMPRESSION: Improving CHF. No definite infiltrate on today's exam March 20: Chest x-ray: Shows moderately distended pulmonary arteries and edema throughout both lung carvalho, worse. There is a potential superimposed infiltrate in the right upper lobe. (Severe CHF) March 19: Nasal MRSA screen is negative. Blood cultures are negative so far. Sputum Gram stain: Shows only a few polys and squamous epithelial cells. Chest x-ray: Shows stable cardiomegaly and widespread infiltrates in all lung carvalho, suggestive of CHF with possible superimposed pneumonia. March 18: CBC: White blood cell count 20,000, hemoglobin 15, hematocrit 49, platelets 290, 000, 65% neutrophils, 21% monocytes ABG: On room air: Shows pH 7.43, CO2 35, O2 77, bicarb 23, O2 saturation 95%. Lactic acid is normal at 1.5 Pro-calcitonin is normal at less than 0.05 Chemistry panel: Sodium 137, potassium 3.9, chloride 100, CO2 21, anion gap 16, BUN 20, creatinine 0.9, glucose 113 Total bilirubin 1.1, other LFTs normal. Troponin T is normal at 0.02 ProBNP is elevated at 6200 Urinalysis: Shows 0.03 occult blood, 4.0 urobilinogen, otherwise normal. Chest x-ray: FINDINGS: Heart is mildly enlarged. There are generalized alveolar opacities throughout both lungs. This is most apparent in a perihilar distribution. No consolidating infiltrate is present and there is no pleural effusion. Dual-chamber pacemaker is well-positioned. There is a shunt catheter extending across right chest from the neck to the abdomen. Comparison with the prior exam from 06/28/15 shows the previously seen bibasilar infiltrates are no longer present. IMPRESSION: Congestive heart failure with pulmonary edema. Superimposed pneumonia cannot be excluded. EKG shows left bundle branch block, probably paced. There may be underlying atrial fibrillation. Records from [facility]: March 12: Chest x-ray: Cardiomegaly. Sternotomy wires. Congestive heart failure with possible early infiltrate in the right lung base. Cardiogram: Showed severe left ventricular dilation severely reduced ejection fraction of 25%. Diffuse hypokinesis and akinesis due to previous large inferior lateral SD, and possibly anterior. Biatrial enlargement. Mild aortic regurgitation. Mild aortic stenosis. Pulmonary hypertension. Nuclear scan: Pharmacologic stress test: She had chest pain with injection. Dilated left ventricle with apical lateral perfusion abnormality no evidence of curt-infarction ischemia. Chest consistent with ischemic cardiomyopathy. Medical - DS: A/P - Patient/Caregiver Discharge Instructions Activity: increase activity as tolerated Diet: Low Sodium (2gm) Additional Instructions: 1. Shortness of breath. He appears to have a combination of congestive heart failure and possible superimposed pneumonia. He had not really responded well to antibiotics, so those have been discontinued. We did resume Lasix and other heart medications, to help relieve symptoms of CHF. You have decided to go home and stop all aggressive care. We have prescribed both lorazepam and morphine to be used as needed for shortness of breath, anxiety, chest pain. The home hospice nurses will be out to meet you today, to assess for other needs , such as bedrails, bedside commode, oxygen, etc. Home with hospice. Discharge medications: take as directed Morphine 10 mg/mL, 2.5-5 mg p.o. every 2 hours as needed chest pain or respiratory distress. May cause hallucinations. Hydrocodone/acetaminophen 5/325 one every 6 hours as needed pain Lorazepam solution 2 mg/mL. 1-2 mg every 4 hours as needed anxiety or insomnia Tylenol 650 mg every 4 hours as needed mild pain Tums 500 mg every 4 hours as needed indigestion Carvedilol 6.25 mg p.o. twice daily Docusate sodium 100 mg p.o. twice daily Lasix 20 mg p.o. twice daily for heart failure Milk of magnesia 30 mL p.o. daily as needed constipation Zofran 4 mg sublingual every 4 hours as needed nausea Protonix 40 mg p.o. daily Potassium chloride 10 mEq p.o. twice daily Sertraline 25 mg p.o. daily Aspirin 81 mg daily Vitamin D 2000 units daily Plavix 75 mg p.o. daily next line Combivent inhaler 2 puffs every 4 hours as needed Levothyroxine 80 mcg p.o. daily Nortriptyline 25 mg p.o. nightly as needed for sleep or neuropathy pain. Prescriptions: HYDROcodone/APAP 5/325MG [[place] 5/325Mg] 1 tab PO Q6HP PRN #20 tab PRN Reason: Pain Level 3-6 LORazepam [Lorazepam Intensol] 1 mg PO Q2HP PRN #120 ml PRN Reason: Anxiety morphine SULFATE [Morphine Sulfate] 2.5 mg PO Q2HP PRN #120 ml PRN Reason: Chest Pain Ondansetron HCl [Zofran ODT] 4 mg SL Q4HP PRN #30 tab PRN Reason: Nausea And Vomiting Other Amb Orders: Aspiration Precautions Location: Determined By Patient Home Oxygen Order Location: Determined By Patient - Problem Maintenance (1) CHF exacerbation Status: Acute (2) Ischemic cardiomyopathy Status: Acute (3) History of atrial fibrillation Status: Chronic (4) History of SD (myocardial infarction) Status: Chronic (5) Pneumonia Status: Acute (6) Hydrocephalus with operating shunt Status: Chronic (7) COPD (chronic obstructive pulmonary disease) Status: Chronic (8) Hypothyroidism Status: Chronic (9) Depression Status: Chronic - Follow up Plan Follow up with: Kiana Multani MD [Primary Care Provider] - Disposition: Hospice - Home Prognosis: Serious Rehab Potential: Serious Overall status at discharge: patient is not back to baseline Medical - DS: Qual - VTE Deep Vein Thrombosis/Pulmonary Embolism Present on Admission: Yes
== END 2017-03-27 14:55 | disposition hospice, home (50) | DRG 291 ==
LOC: ED 13:24 → ICU 21:22 → MEDSUR 03-23 20:29
PROVIDERS: ADMIT Internal Medicine; ATTEND Internal Medicine